=== PATIENT | female | born 1975 | race Caucasian/White ===

== ENCOUNTER 2017-02-05 12:27 | Emergency (ER) | payer BC, SELFPAY | END 2017-02-05 13:51 | disposition home or self-care (01) | PROVIDERS: Emergency Provider Nurse Practitioner; Family Provider Family Medicine; Visit Provider Nurse Practitioner | DX: J06.9 Acute upper respiratory infection, unspecified (principal); J45.909 Unspecified asthma, uncomplicated | CPT/HCPCS: 36415; 86318; 87804; 87880; 99201 ==

== ENCOUNTER 2017-02-15 14:06 | Emergency (ER) | payer BC, SELFPAY ==
[2017-02-15 14:52] VITALS: BP 146/89; PULSE 101; RESP 18; TEMP 36.7; O2SAT 99; BMI 22.4
--- NOTE | 2017-02-15 15:01 | CT_ITS ---
CT head/brain wo con HISTORY: Severe left-sided headache ITS.REASON: BRAIN CYST/LEFT SIDE PAIN ORDERING PHYSICIAN: Anna Cartagena MD PATIENT AGE: 41 years COMPARISON: None TECHNIQUE: Axial images obtained without contrast. Brain and bone windows reviewed. FINDINGS: No midline shift, mass effect, intracranial hemorrhage, hydrocephalus, or extra-axial fluid collection is evident. Small isodensity once again noted in the medial aspect of the right temporal lobe may be due to small choroidal fissure cyst or partial white matter region from the ventricle unchanged. The calvarium has an unremarkable appearance. No mastoid effusion. No sinus air-fluid levels.. IMPRESSION: No acute intracranial findings. No change with no acute finding.
--- NOTE | 2017-02-15 17:18 | HMH.EDGENADL ---
ED Disposition Clinical Impression: Muscle spasms of neck Disposition: Home, Self-Care Condition on Discharge: Good Instructions: DI for Muscle Spasm Additional Instructions: Watch for any unusual rashes; head CT was negative per radiology today; follow up with your family doctor next week for recheck. Recommend continue your home Naproxen, Rx Flexeril but can make you sleepy so no driving while taking this medication Prescriptions: Cyclobenzaprine HCl [Flexeril 10mg tablet] 10 mg PO TID PRN #6 tablet PRN Reason: Muscle Spasm Referrals: Catherine Watkins [Primary Care Provider] - - Critical Care Critical Care Time: No Attestation: On 02/15/17, the high probability of a clinically significant, sudden or life threatening deterioration of the following system(s) required my full and direct attention, intervention and personal management. The time I documented below is in addition to time spent performing reported procedures but includes the following listed in this critical care notation. Medical Decision Making - Medical Records Medical records reviewed: Yes: I reviewed the patient's medical records. Vital Signs: 02/15/17 14:52 Temperature 98.0 F Temperature Source Oral Pulse Rate [Right Brachial] 101 H Respiratory Rate 18 Blood Pressure [Right Arm] 146/89 Blood Pressure Mean [Right Arm] 108 Blood Pressure Source [Right Arm] Automatic Cuff Blood Pressure Position [Right Arm] Supine 02 Sat by Pulse Oximetry 99 Oxygen Delivery Method Room Air - CT Data CT Scan: Head Time Received: 17:[address] Reviewed: Yes: I have reviewed the patient's CT results, I have viewed the radiologist's interpretation Preliminary Findings: Normal/NAD Findings Narrative: small cyst, neg acute findings, hx of cyst - Sunil Inquiry Pt receiving controlled substance: No General Adult HPI - General Chief complaint: PAIN Stated complaint: left side head pain Time Seen by Provider: 02/15/17 17:18 Mode of Arrival: Ambulatory Limitations: No Limitations Description of Symptoms (Recalled from ER Triage Doc. by RN): LEFT SIDE SKULL PAIN - History of Present Illness HPI narrative: Patient with intermittent headache on left side for the past few weeks, seems worse today. Worse with movement. Has some ear pain. Seen at [facility] in [place], [place], today and strep negative and sent to their ER. She states she signed in then left AMA because of the wait. 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 No numbness or tingling. States hx of cyst in brain per prior imaging. No rashes. Radiation: neck Relieving factors: rest Exacerbating factors: movement Associated symptoms: negative: confusion, nausea/vomiting, rash - Related Data Previous Rx's Medication Instructions Recorded Cyclobenzaprine HCl [Flexeril 10mg 10 mg PO TID PRN #6 tab 02/15/17 tablet] Allergies Allergy/AdvReac Type Severity Reaction Status Date / Time aspirin [ASPIRIN] Allergy Unknown RINGING Verified 02/15/17 17:31 EARS [facility] History - *Social History Educational Level: Attended High School Smoking Status: Current some day smoker Tobacco Type: cigarettes Alcohol Intake: former Alcohol Intake Frequency:: holidays/special occasions only Substance Use Type: denies use - Psychiatric History Expresses thoughts of harming self/others: None Suicide Plan Description: No Plan ROS Obtained: Yes All systems reviewed & no additional complaints except as noted Physical Exam - General General appearance: alert, in no apparent distress - Head Head exam: atraumatic, normocephalic, normal inspection - Eye Eye exam: Present: normal appearance, PERRL, EOMI - ENT ENT exam: Present: normal exam, normal oropharynx, mucous membranes moist, TM's normal bilaterally, normal external ear exam - Neck Neck exam: Present: normal inspection, full ROM (subjective tenderness and spasm L trapezius no evidence of vesicles or rash no meningismus), tr
--- NOTE | 2017-02-15 17:21 | ED_ITS ---
ED Disposition Clinical Impression: Muscle spasms of neck Disposition: Home, Self-Care Condition on Discharge: Good Instructions: DI for Muscle Spasm Additional Instructions: Watch for any unusual rashes; head CT was negative per radiology today; follow up with your family doctor next week for recheck. Recommend continue your home Naproxen, Rx Flexeril but can make you sleepy so no driving while taking this medication Prescriptions: Cyclobenzaprine HCl [Flexeril 10mg tablet] 10 mg PO TID PRN #6 tablet PRN Reason: Muscle Spasm Referrals: Catherine Watkins [Primary Care Provider] - - Critical Care Critical Care Time: No Attestation: On 02/15/17, the high probability of a clinically significant, sudden or life threatening deterioration of the following system(s) required my full and direct attention, intervention and personal management. The time I documented below is in addition to time spent performing reported procedures but includes the following listed in this critical care notation. Medical Decision Making - Medical Records Medical records reviewed: Yes: I reviewed the patient's medical records. Vital Signs: 02/15/17 14:52 Temperature 98.0 F Temperature Source Oral Pulse Rate [Right Brachial] 101 H Respiratory Rate 18 Blood Pressure [Right Arm] 146/89 Blood Pressure Mean [Right Arm] 108 Blood Pressure Source [Right Arm] Automatic Cuff Blood Pressure Position [Right Arm] Supine 02 Sat by Pulse Oximetry 99 Oxygen Delivery Method Room Air - CT Data CT Scan: Head Time Received: 17:[address] Reviewed: Yes: I have reviewed the patient's CT results, I have viewed the radiologist's interpretation Preliminary Findings: Normal/NAD Findings Narrative: small cyst, neg acute findings, hx of cyst - Sunil Inquiry Pt receiving controlled substance: No General Adult HPI - General Chief complaint: PAIN Stated complaint: left side head pain Time Seen by Provider: 02/15/17 17:18 Mode of Arrival: Ambulatory Limitations: No Limitations Description of Symptoms (Recalled from ER Triage Doc. by RN): LEFT SIDE SKULL PAIN - History of Present Illness HPI narrative: Patient with intermittent headache on left side for the past few weeks, seems worse today. Worse with movement. Has some ear pain. Seen at [facility] in [place], [place], today and strep negative and sent to their ER. She states she signed in then left AMA because of the wait. 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 No numbness or tingling. States hx of cyst in brain per prior imaging. No rashes. Radiation: neck Relieving factors: rest Exacerbating factors: movement Associated symptoms: negative: confusion, nausea/vomiting, rash - Related Data Previous Rx's Medication Instructions Recorded Cyclobenzaprine HCl [Flexeril 10mg 10 mg PO TID PRN #6 tab 02/15/17 tablet] Allergies Allergy/AdvReac Type Severity Reaction Status Date / Time aspirin [ASPIRIN] Allergy Unknown RINGING Verified 02/15/17 17:31 EARS [facility] History - *Social History Educational Level: Attended High School Smoking Status: Current some day smoker Tobacco Type: cigarettes Alcohol Intake: former Alcohol Intake Frequency:: holidays/special occasions only Substance Use Type: denies use - Psychiatric History Expresses thoughts of harming self/othe
[2017-02-15 17:33] VITALS: BP 132/80; RESP 16
== END 2017-02-15 17:41 | disposition home or self-care (01) ==
PROVIDERS: Emergency Provider Emergency Medicine; Family Provider Family Medicine; PCP Psychiatry & Neurology Neurology
DX: M62.838 Other muscle spasm (principal); F17.210 Nicotine dependence, cigarettes, uncomplicated
CPT/HCPCS: 70450; 99283

== ENCOUNTER → 2017-03-06 12:29 | Outpatient (CLI) | payer BC, SELFPAY ==
--- NOTE | 2017-03-06 12:35 | XR_ITS ---
EXAM: XR cervical spine 5V HISTORY: ITS.REASON: CERVICALGIA, LT SIDED HEADACHE ORDERING PHYSICIAN: Kitty Garcia PATIENT AGE: 41 years COMPARISON: None FINDINGS: Normal alignment. No fracture or dislocation. No lytic or blastic change. No significant degenerative change. The disc spaces are preserved. There is slight reversal of the cervical lordosis. This may be due to patient positioning but may also be seen with mild muscle spasm. The foramina are widely patent. No evidence of cervical rib. IMPRESSION: Slight reversal of cervical lordosis otherwise negative cervical spine
== END ==
PROVIDERS: PCP Nurse Practitioner Family; Visit Provider Nurse Practitioner Family
DX: M54.2 Cervicalgia (principal); R51 Headache
CPT/HCPCS: 72050

== ENCOUNTER → 2017-04-25 11:27 | Outpatient (CLI) | payer BC, SELFPAY ==
--- NOTE | 2017-04-25 11:57 | XR_ITS ---
XR chest 2V HISTORY: Chest pain, shortness of air, hypertension ITS.REASON: SHORTNESS OF BREATH ORDERING PHYSICIAN: Kitty Garcia PATIENT AGE: 41 years COMPARISON: None available FINDINGS: The cardiomediastinal silhouette and pulmonary vascularity are within normal limits. The lungs are clear without infiltrates, suspicious nodules, or pleural effusions. A calcified granuloma is present in the right middle lobe. No acute bony abnormalities. IMPRESSION: No change with no acute finding
[2017-04-25 15:11] LABS: Basophils # 0.1 K/mm3 (0-0.2); Basophils % 0.5 % (0.1-2.0); Eosinophils # 0.3 K/mm3 (0.0-0.4); Eosinophils % 2.6 % (0.1-12.0); Hematocrit 42.8 % (37.0-47.0); Hemoglobin 14.3 g/dL (12.2-16.2); Lymphocytes # 2.9 K/mm3 (0.7-4.5); Lymphocytes % 26.5 K/mm3 (10-50); Mean Corpuscular HGB Conc 33.4 g/dL (31.8-35.4); Mean Corpuscular Hemoglobin 32.3 pg (27.0-31.2); Mean Corpuscular Volume 96.7 fl (81-99); Mean Platelet Volume 7.8 fl (7.4-10.4); Monocytes # 0.5 K/mm3 (0.1-1.0); Monocytes % 4.8 % (1.7-9.3); Neutrophils # 7.3 K/mm3 (1.8-7.8); Neutrophils % 65.6 % (37.0-80.0); Platelet Count 274 K/mm3 (142-424); Red Blood Count 4.42 M/mm3 (4.20-5.40); Red Cell Distribution Width 12.5 % (11.5-17.5); White Blood Count 11.1 K/mm3 (4.8-10.8)
[2017-04-25 15:25] LABS: Troponin I < 0.02 ng/ml (0.00-0.06)
[2017-04-25 15:35] LABS: Alanine Aminotransferase 21 U/L (12-78); Albumin Level 4.1 gm/dL (3.4-5.0); Albumin/Globulin Ratio 1.3 (1.1-1.8); Alkaline Phosphatase 60 U/L (46-116); Anion Gap 11.2 mEq/L (5-15); Aspartate Amino Transferase 9 U/L (15-37); Bilirubin,Total 0.2 mg/dL (0.2-1.0); Blood Urea Nitrogen 9 mg/dL (7-18); Calcium 8.8 mg/dL (8.5-10.1); Carbon Dioxide 29 mmol/L (21.0-32.0); Chloride 106 mmol/L (98-107); Creatinine,Serum 0.65 mg/dL (0.55-1.02); Estimated Glomerular Filt Rate 100 ml/min (>60); Ferritin 25 ng/mL (8-388); GFR (African American) 122 ML/MIN (>60); Globulin 3.1 gm/dl (1.3-3.2); Glucose 116 mg/dL (74-106); Potassium 4.2 mmoL/L (3.5-5.1); Sodium 142 mmol/L (136-145); Thyroid Stimulating Hormone 1.01 uIU/ml (0.358-3.740); Total Protein,Serum 7.2 gm/dL (6.4-8.2)
[2017-04-25 17:52] LABS: C-Reactive Protein < 0.2 mg/L (0.0-0.9)
[2017-04-30 06:24] LABS: Antinuclear Antibodies, IFA Negative (.)
== END ==
PROVIDERS: PCP Family Medicine; Visit Provider Nurse Practitioner Family
DX: R06.02 Shortness of breath (principal); R00.0 Tachycardia, unspecified; R03.0 Elevated blood-pressure reading, without diagnosis of hypertension; R53.83 Other fatigue
CPT/HCPCS: 36415; 71046; 80053; 82728; 84443; 84484; 85025; 86038; 86140; 93225; 93226

== ENCOUNTER 2018-08-29 04:31 | Observation (INO) ==
[2018-08-29 04:55] LABS: Microscopic, Urine URINE MICROSCOPIC (MICROSCOPIC)
[2018-08-29 04:57] LABS: Appearance,Urine CLEAR (Clear); Blood, Urine Negative (Negative); Glucose,Urine (UA) Negative (Negative); Ketones,Urine TRACE (Negative); Leukocyte Esterase,Urine Negative (Negative); PH,Urine 5.5 (5.0-8.5); Protein,Urine Negative (Negative); Specific Gravity, Urine 1.025 (1.005-1.030); Urobilinogen,Urine 0.2 EU/dl (0.2)
[2018-08-29 04:58] LABS: Basophils # 0.1 K/mm3 (0-0.2); Basophils % 0.5 % (0.1-2.0); Bilirubin,Urine Negative (Negative); Color,Urine Amber (Yellow); Eosinophils # 0.2 K/mm3 (0.0-0.4); Eosinophils % 2.1 % (0.1-12.0); Hematocrit 40.4 % (37.0-47.0); Hemoglobin 12.9 g/dL (12.2-16.2); Lymphocytes # 3.8 K/mm3 (0.7-4.5); Lymphocytes % 35.7 % (10-50); Mean Corpuscular Volume 92.6 fl (81-99); Mean Platelet Volume 7.4 fl (7.4-10.4); Monocytes # 0.5 K/mm3 (0.1-1.0); Monocytes % 4.9 % (1.7-9.3); Neutrophils # 6.1 K/mm3 (1.8-7.8); Neutrophils % 56.9 % (37.0-80.0); Platelet Count 271 K/mm3 (142-424); Red Blood Count 4.37 M/mm3 (4.20-5.40); Red Cell Distribution Width 12.7 % (11.5-17.5); White Blood Count 10.8 K/mm3 (4.8-10.8)
[2018-08-29 05:06] LABS: Alanine Aminotransferase 19 U/L (12-78); Albumin Level 3.7 gm/dL (3.4-5.0); Albumin/Globulin Ratio 1.1 (1.1-1.8); Alkaline Phosphatase 91 U/L (46-116); Amylase 116 U/L (25-115); Anion Gap 9.9 mEq/L (5-15); Aspartate Amino Transferase 11 U/L (15-37); Bilirubin,Total 0.4 mg/dL (0.2-1.0); Blood Urea Nitrogen 13 mg/dL (7-18); Calcium 8.7 mg/dL (8.5-10.1); Carbon Dioxide 28 mmol/L (21.0-32.0); Chloride 107 mmol/L (98-107); Globulin 3.4 gm/dl (1.3-3.2); Glucose 111 mg/dL (74-106); Sodium 141 mmol/L (136-145); Total Protein,Serum 7.1 gm/dL (6.4-8.2)
[2018-08-29 05:08] LABS: C-Reactive Protein < 0.2 mg/L (0.0-0.9)
[2018-08-29 05:10] LABS: Amorphous Sediment,Urine 1+ /lpf; Bacteria,Urine 2+ /lpf; Mucus,Urine 1+ /lpf
[2018-08-29 05:56] LABS: Erythrocyte Sedimentation Rate 19 mm/hr (0-20)
--- NOTE | 2018-08-29 06:31 | Emergency Department Note ---
ED Disposition Clinical Impression: Colitis Disposition: Admitted as Observation Condition on Discharge: Good Instructions: DI for Acute Abdomen Referrals: Savannah Crabtree [Primary Care Provider] - - Critical Care Critical Care Time: No Attestation: On 08/29/18, the high probability of a clinically significant, sudden or life threatening deterioration of the following system(s) required my full and direct attention, intervention and personal management. The time I documented below is in addition to time spent performing reported procedures but includes the following listed in this critical care notation. Medical Decision Making - Medical Records Medical records reviewed: Yes: I reviewed the patient's medical records. - Sunil Inquiry Pt receiving controlled substance: No Vital Signs: 08/29/18 04:40 08/29/18 06:31 Temperature 97.6 F Temperature Source Oral Pulse Rate [Right Radial] 76 80 Respiratory Rate 20 18 Blood Pressure [Right Arm] 121/99 H 129/90 Blood Pressure Mean [Right Arm] 106 103 02 Sat by Pulse Oximetry 100 100 Oxygen Delivery Method Room Air - Lab Data Lab results reviewed: Yes: I reviewed the patient's lab results. Lab Results 08/29/18 04:45: Urine Color Charissa, Urine Appearance Clear, Urine pH 5.5, Ur Specific [place] 1.025, Urine Protein Negative, Urine Glucose (UA) Negative, Urine Ketones Trace, Urine Blood Negative, Urine Nitrate Positive, Urine Bilirubin Negative, Urine Urobilinogen 0.2, Ur Leukocyte Esterase Negative, Urine WBC 3-5, Ur Squamous Epith Cells 3-5, Amorphous Sediment 1+, Urine Bacteria 2+, Urine Mucus 1+ 08/29/18 04:45: WBC 10.8, RBC 4.37, Hgb 12.9, Hct 40.4, MCV 92.6, MCH 29.6, MCHC 32.0, RDW 12.7, Plt Count 271, MPV 7.4, Neut % (Auto) 56.9, Lymph % (Auto) 35.7, [place] % (Auto) 4.9, Eos % (Auto) 2.1, Baso % (Auto) 0.5, Neut # (Auto) 6.1, Lymph # (Auto) 3.8, [place] # (Auto) 0.5, Eos # (Auto) 0.2, Baso # (Auto) 0.1, ESR 19 08/29/18 04:45: Sodium 141, Potassium 3.9, Chloride 107, Carbon Dioxide 28, Anion Gap 9.9, BUN 13, Creatinine 0.79, Estimated Creat Clear 103, Estimated GFR 80, Est GFR ( Amer) 97, Glucose 111 H, Calcium 8.7, Total Bilirubin 0.4, AST 11 L, ALT 19, Alkaline Phosphatase 91, C-Reactive Protein < 0.2, Total Protein 7.1, Albumin 3.7, Globulin 3.4 H, Albumin/Globulin Ratio 1.1, Amylase 116 H, Lipase 180 Result diagrams: 08/29/18 04:45 08/29/18 04:45 Orders (Tests/Meds): ED MEDICATIONS Generic Name Dose Route Start Last Admin Trade Name Freq PRN Reason Stop Dose Admin Sodium Chloride 1,000 mls @ 999 mls/hr 08/29/18 04:45 08/29/18 04:48 Sod Chlor 0.9% 1000ml Bag IV 08/29/18 05:45 999 mls/hr .Q1H1M ESTEFANY Administration Sodium Chloride 1,000 mls @ 999 mls/hr 08/29/18 07:00 08/29/18 07:00 Sod Chlor 0.9% 1000ml Bag IV 08/29/18 08:00 999 mls/hr .Q1H1M ESTEFANY Administration Discontinued Medications Generic Name Dose Route Start Last Admin Trade Name Freq PRN Reason Stop Dose Admin Hydromorphone HCl 1 mg 08/29/18 07:05 Dilaudid 2mg/Ml Syringe IV 08/29/18 07:06 ONCE ONE Ioversol 75 ml 08/29/18 05:56 08/29/18 05:57 Rad-Optiray 350 100ml Vial IV 08/29/18 05:57 75 ml ONCE ONE Administration Protocol Ketorolac Tromethamine 30 mg 08/29/18 04:44 08/29/18 04:48 Toradol 30mg/Ml Vial IV 08/29/18 04:45 30 mg ONCE ONE Administration Morphine Sulfate 4 mg 08/29/18 04:55 08/29/18 04:58 Morphine 4mg/Ml Syringe IV 08/29/18 04:56 4 mg ONCE ONE Administration Morphine Sulfate 4 mg 08/29/18 06:21 08/29/18 06:25 Morphine 4mg/Ml Syringe IV 08/29/18 06:22 4 mg ONCE ONE Administration Ondansetron HCl 4 mg 08/29/18 04:44 08/29/18 04:48 Zofran 4mg/2ml Vial IV 08/29/18 04:45 4 mg ONCE ONE Administration Ondansetron HCl 4 mg 08/29/18 06:25 08/29/18 06:25 Zofran 4mg/2ml Vial IV 08/29/18 06:26 4 mg ONCE ONE Administration Sodium Chloride 10 ml 08/29/18 05:56 08/29/18 05:57 Rad-Saline Flush 10ml Syringe IV 08/29/18 05:57 10 ml ONCE ONE Administration ORDERS Category Date Time Status CT abdomen pelvis w con Stat Cat Scan 08/29/18 04:45 Taken Urine Culture Stat Micro 08/29/18 04:45 Received - CT Data CT Scan: Abdomen, Pelvis Time Received: 07:[address] Reviewed: Yes: I have viewed the radiologist's interpretation Preliminary Findings: Abnormal (colitis) - Physician Consults Physician Consulted: kary Reason -: Admission Nausea/Vomiting/Diarrhea HPI - General Chief complaint: Abdominal Pain Stated complaint: Abdominal pain;contractions Time Seen by Provider: 08/29/18 05:30 Mode of Arrival: Ambulatory Source of Information: Patient, Spouse, Medical Record Limitations: No Limitations Description of Symptoms (Recalled from ER Triage Doc. by RN): PT STATES SHE WOKE UP AT 0130 WITH SEVERE LOWER MID ABDOMINAL PAIN AND NAUSEA. PT STATES IS FEELS LIKE LABOR CONTRACTIONS. PT STATES SHE HAS BEEN HAVING SOME MODERATE CONSTIPATION OVER THE PAST 4 DAYS. - History of Present Illness HPI Narrative: pt with nausea - pt with crampy abd pain with feling constipation with occ blood in stool MD complaint: nausea, abdominal pain Onset (ago): hour(s) Associated Abdominal Pain: Yes Location of pain: LLQ Radiation: LLQ Severity: moderate Associated symptoms: denies other symptoms - Related Data Home Medications Medication Instructions Recorded Confirmed Buspirone HCl [Buspar 10mg 10 mg PO DAILY 08/29/18 08/29/18 tablet] Estrogens, Conjugated [Premarin] 6.25 mg PO DAILY 08/29/18 08/29/18 Quetiapine Fumarate 100 mg PO DAILY 08/29/18 08/29/18 Allergies Allergy/AdvReac Type Severity Reaction Status Date / Time aspirin [ASPIRIN] Allergy Unknown RINGING Verified 08/29/18 04:43 EARS Androgenic Anabolic Steroid Allergy Verified 08/29/18 04:43 [facility] History - Hepatitis A Screen Drug use history?: No High risk sexual behaviors?: No History of sexually transmitted infection?: No Currently employed?: No Childcare worker?: No Do you have indoor plumbing?: Yes Do you have electricity?: Yes Attestation statement:: This patient has been screened for Hepatitis A risk factors. I have reviewed the patient's past medical history: Yes Medical History: Reports:: Hypertension (on no medications per report) Denies:: Cancer, Coronary Artery Disease, Diabetes Mellitus Type 1, Diabetes Mellitus Type 2, MRSA Laterality Cases: Left: Other Other Surgeries: Yes: Dilation and Curettage, Other (left knee cyst;) Amputation: No - Social History Smoking Status: Current every day smoker Tobacco Type: cigarettes # Packs/Day (cigarettes): 1 Alcohol Intake: never Alcohol Intake Frequency:: holidays/special occasions only Substance Use Type: denies use Occupational Status: unemployed ROS Obtained: Yes All systems reviewed & no additional complaints - Constitutional Constitutional: Denies fever(s) - Eyes Eyes: Denies change in vision - ENT Ears, Nose, Mouth, and Throat: Denies sore throat - Cardiovascular Cardiovascular: Denies chest pain - Respiratory Respiratory: No cough - Gastrointestinal Gastrointestingal: Reports: as per HPI, abdominal pain, constipation, nausea - Genitourinary Female Genitourinary: Denies hematuria - Musculoskeletal Musculoskeletal: Denies joint pain - Integumentary/Breasts Skin/Breast: Denies rash - Neurologic Neurologic: Denies seizure-like activity Physical Exam - General General appearance: alert - Head Head exam: normocephalic - Eye Eye exam: Present: PERRL, EOMI. Absent: scleral icterus - ENT ENT exam: Present: mucous membranes dry - Neck Neck exam: Present: trachea midline - Respiratory Respiratory exam: Absent: respiratory distress - Cardiovascular Cardiovascular exam: Present: regular rate - Abdominal Exam Abdominal exam: Present: soft, tenderness, diminished bowel sounds Abdominal tenderness: Present: LLQ, moderate - Extremities Exam Extremities exam: Present: full ROM - Neurological Exam Neurological exam: Present: alert, oriented X3, CN II-XII intact - Psychiatric Psychiatric exam: Present: normal affect - Skin Skin exam: Absent: rash
--- NOTE | 2018-08-29 07:46 | Pharmacy Consult Notes ---
[facility] Pharmacy VTE Monitoring - Patient Demographics Admission date: 08/29/18 Report Date: 08/29/18 Time: 07:46 Allergies/Adverse Reactions: Patient Allergies aspirin [ASPIRIN] Allergy (Unknown, Verified 08/29/18 04:43) RINGING EARS Androgenic Anabolic Steroid Allergy (Verified 08/29/18 04:43) Height: 1.75 m Weight: 70.307 kg Patient Problems: Current Active Problems (Updated 08/29/18 @ 07:14 by Ashwin Vaca MD) Colitis (Acute) - VTE Risk Labs: VTE Related Lab Results Hgb 12.9 g/dL (12.2-16.2) 08/29/18 04:45 Hct 40.4 % (37.0-47.0) 08/29/18 04:45 Plt Count 271 K/mm3 (142-424) 08/29/18 04:45 BUN 13 mg/dL (7-18) 08/29/18 04:45 Creatinine 0.79 mg/dL (0.55-1.02) 08/29/18 04:45 Estimated Creat Clear 103 mL/min (50-200) 08/29/18 04:45 - Prophylaxis VTE Prophylaxis Ordered?: Yes Types of VTE Prophylaxis: TEDS Knee High Location of Applied Device: Bilateral Lower Extremeties - VTE Diagnosis Confirmed Treatment or plan recommended: Continue Current Treatment
--- NOTE | 2018-08-29 08:24 | History & Physical Report ---
*Admission Date: 08/29/18 <Ledy Michelle 08/29/18 08:25> *Chief complaint: abdominal pain <Ledy Michelle 08/29/18 08:41> *History of present illness: Ms. Lal is a 42-year-old patient of [facility] in [place] who woke up at 1:30 AM with severe lower to mid abdominal pain and nausea that radiates around to her low back. She states she felt like she was having labor contractions. She states she has dealt with constipation her entire life but has had worsening constipation over the past 4 days. She presented to the emergency room for evaluation and treatment and an abdominal CT was ordered. It showed possible colitis with constipation. Her labs were relatively unremarkable other than a slightly elevated amylase. She was admitted for further evaluation and treatment. Of note she did see her PCP last week after spray painting and getting short of breath. She states she was placed on doxycycline and the shortness of breath has improved. <Ledy Michelle 08/29/18 08:41> [facility] History I have reviewed the patient's past medical history: Yes <Ledy Michelle 08/29/18 08:25> Medical History: Reports:: Anxiety Denies:: Cancer, Coronary Artery Disease, Diabetes Mellitus Type 1, Diabetes Mellitus Type 2, Hypertension, MRSA <Ledy Michelle 08/29/18 08:41> *Have you ever received a pneumonia vaccine?: No <Ledy Michelle 08/29/18 08:25> *Have you received a flu vaccine this season?: No <Ledy Michelle 08/29/18 08:25> Laterality Cases: Left: Other <Ledy Michelle 08/29/18 08:25> Other Surgeries: Yes: Appendectomy, Dilation and Curettage, Hysterectomy-Total, Other (left knee cyst;) <Ledy Michelle 08/29/18 08:41> Amputation: No <Ledy Michelle 08/29/18 08:25> - *Social History Smoking Status: Current every day smoker <Ledy Michelle 08/29/18 08:25> Tobacco Type: cigarettes <Ledy Michelle 08/29/18 08:25> # Packs/Day (cigarettes): 1 <Ledy Michelle - 08/29/18 08:25> Alcohol Intake: never [facility] 08[facility]> Alcohol Intake Frequency:: holidays/special occasions only <[facility]/29/18 08:25> Substance Use Type: denies use <[facility] [place] 08/29/18 08:25> *Occupational Status:: unemployed <EdkajalLedy - 08/29/18 08:25> *Travel in the last 8 weeks: None <[facility] [place] 08/29/18 08:25> Family Hx:: Cancer, Diabetes, Heart Attack, Hyperlipidemia, Hypertension, Stroke <[facility] [place] 08/29/18 08:41> Review of Systems - Constitutional Reports weakness, Denies body ache(s), Denies chills, Denies fever(s) <[facility] 08/29/18 08:41> - Eyes Denies blurry vision, Denies double vision <[facility] 08/29/18 08:41> - ENT Reports sore throat, Denies nasal congestion <[facility] 08/29/18 08:41> - *Cardiovascular Denies chest pain, Denies shortness of breath <[facility] 08/29/18 08:41> - *Respiratory Reports cough, Denies shortness of breath <[facility] 08/29/18 08:41> - *Gastrointestinal Reports abdominal pain (mid to lower abdominal pain), Reports constipation, Reports nausea, Reports vomiting, Denies loose stools <[facility] [place] 08:41> - *Genitourinary Denies difficulty urinating, Denies painful urination <[facility] 08/29/18 08:41> - *Musculoskeletal Denies joint pain <[facility] 08/29/18 08:41> - *Neurologic Denies headache(s), Denies seizure-like activity, Denies dizziness, Denies weakness <[facility] 08/29/18 08:41> Meds Home Medications Medication Instructions Recorded Confirmed Type Albuterol Sulfate [Albuterol HFA 2 puffs IH Q4HP PRN 08/29/18 08/29/18 History Inhaler] Buspirone HCl [Buspar 10mg 10 mg PO BID 08/29/18 08/29/18 History tablet] Estrogens, Conjugated [Premarin] 0.625 mg PO DAILY 08/29/18 08/29/18 History Quetiapine Fumarate 100 mg PO HS 08/29/18 08/29/18 History <[place],Andriy - 08/29/18 09:14> Allergies Allergy/AdvReac Type Severity Reaction Status Date / Time aspirin [ASPIRIN] Allergy Unknown RINGING Verified 08/29/18 04:43 EARS Androgenic Anabolic Steroid Allergy Verified 08/29/18 04:43 <[place],Andriy - 08/29/18 09:14> Exam Vital signs and Labs for Last 24 Hours: Temp Pulse Resp BP Pulse Ox 98.2 F 64 18 112/70 100 08/29/18 08:55 08/29/18 08:55 08/29/18 08:55 08/29/18 08:55 08/29/18 08:55 Laboratory Results - last 24 hr 08/29/18 04:45: Urine Color Charissa, Urine Appearance Clear, Urine pH 5.5, Ur Specific [place] 1.025, Urine Protein Negative, Urine Glucose (UA) Negative, Urine Ketones Trace, Urine Blood Negative, Urine Nitrate Positive, Urine Bilirubin Negative, Urine Urobilinogen 0.2, Ur Leukocyte Esterase Negative, Urine WBC 3-5, Ur Squamous Epith Cells 3-5, Amorphous Sediment 1+, Urine Bacteria 2+, Urine Mucus 1+ 08/29/18 04:45: WBC 10.8, RBC 4.37, Hgb 12.9, Hct 40.4, MCV 92.6, MCH 29.6, MCHC 32.0, RDW 12.7, Plt Count 271, MPV 7.4, Neut % (Auto) 56.9, Lymph % (Auto) 35.7, [place] % (Auto) 4.9, Eos % (Auto) 2.1, Baso % (Auto) 0.5, Neut # (Auto) 6.1, Lymph # (Auto) 3.8, [place] # (Auto) 0.5, Eos # (Auto) 0.2, Baso # (Auto) 0.1, ESR 19 08/29/18 04:45: Sodium 141, Potassium 3.9, Chloride 107, Carbon Dioxide 28, Anion Gap 9.9, BUN 13, Creatinine 0.79, Estimated Creat Clear 103, Estimated GFR 80, Est GFR ( Amer) 97, Glucose 111 H, Calcium 8.7, Total Bilirubin 0.4, AST 11 L, ALT 19, Alkaline Phosphatase 91, C-Reactive Protein < 0.2, Total Protein 7.1, Albumin 3.7, Globulin 3.4 H, Albumin/Globulin Ratio 1.1, Amylase 116 H, Lipase 180 <[place],Andriy - 08/29/18 09:14> Temp Pulse Resp BP Pulse Ox 97.6 F 80 18 129/90 100 08/29/18 04:40 08/29/18 06:31 08/29/18 06:31 08/29/18 06:31 08/29/18 06:31 Laboratory Results - last 24 hr 08/29/18 04:45: Urine Color Charissa, Urine Appearance Clear, Urine pH 5.5, Ur Specific [place] 1.025, Urine Protein Negative, Urine Glucose (UA) Negative, Urine Ketones Trace, Urine Blood Negative, Urine Nitrate Positive, Urine Bilirubin Negative, Urine Urobilinogen 0.2, Ur Leukocyte Esterase Negative, Urine WBC 3-5, Ur Squamous Epith Cells 3-5, Amorphous Sediment 1+, Urine Bacteria 2+, Urine Mucus 1+ 08/29/18 04:45: WBC 10.8, RBC 4.37, Hgb 12.9, Hct 40.4, MCV 92.6, MCH 29.6, MCHC 32.0, RDW 12.7, Plt Count 271, MPV 7.4, Neut % (Auto) 56.9, Lymph % (Auto) 35.7, [place] % (Auto) 4.9, Eos % (Auto) 2.1, Baso % (Auto) 0.5, Neut # (Auto) 6.1, Lymph # (Auto) 3.8, [place] # (Auto) 0.5, Eos # (Auto) 0.2, Baso # (Auto) 0.1, ESR 19 08/29/18 04:45: Sodium 141, Potassium 3.9, Chloride 107, Carbon Dioxide 28, Anion Gap 9.9, BUN 13, Creatinine 0.79, Estimated Creat Clear 103, Estimated GFR 80, Est GFR ( Amer) 97, Glucose 111 H, Calcium 8.7, Total Bilirubin 0.4, AST 11 L, ALT 19, Alkaline Phosphatase 91, C-Reactive Protein < 0.2, Total Protein 7.1, Albumin 3.7, Globulin 3.4 H, Albumin/Globulin Ratio 1.1, Amylase 116 H, Lipase 180 <Ledy Michelle 08/29/18 08:41> I & O for Last 24 hours: Intake & Output 08/26/18 08/27/18 08/28/18 08/29/18 23:59 23:59 23:59 23:59 Weight 155 lb 3 oz <Andriy Segal - 08/29/18 09:14> Intake & Output 08/26/18 08/27/18 08/28/18 08/29/18 11:59 11:59 11:59 11:59 Weight 155 lb <Ledy Michelle 08/29/18 08:25> - Constitutional no acute distress (but does appear to be in pain) <Miguel AngelLedy 08/29/18 08:41> - *Routine HEENT Exam Head: Present: normocephalic <Ledy Michelle 08/29/18 08:41> Eye: Present: EOMI, PERRL <Ledy Michelle 08/29/18 08:41> ENT: Present: mucous membranes dry <Ledy Michelle 08/29/18 08:41> - *Routine Neck Exam Present: supple. Absent: lymphadenopathy <Ledy Michelle 08/29/18 08:41> - *Routine Respiratory Exam Present: CTA bilaterally <Ledy Michelle 08/29/18 08:41> - *Routine Cardiovascular Exam Present: RRR <[facility] 08/29/18 08:41> - *Routine Abdominal Exam Present: soft, normoactive bowel sounds, tenderness (diffuse but worse in the bilateral lower quadrants) <Miguel AngelLedy 08/29/18 08:41> - *Routine Extremities Exam Absent: cyanosis, clubbing, edema <Ledy Michelle 08/29/18 08:41> - *Routine Skin Exam Present: warm. Absent: rash <Miguel AngelLedy 08/29/18 08:41> - *Routine Neurological Exam Present: alert, oriented X3 <Miguel AngelLedy - 08/29/18 08:41> H&P: Result - Impressions CT abd/pelvis Possible colitis with constipation <Ledy Michelle - 08/29/18 08:25> Assessment and Plan (1) Colitis Current visit: Yes Status: Acute Category: Medical Code(s): K52.9 - Noninfective gastroenteritis and colitis, unspecified (2) Low back pain Current visit: No Status: Acute Qualifiers: Chronicity: acute Back pain laterality: bilateral Sciatica presence: without sciatica Qualified Code(s): M54.5 - Low back pain Category: Medical Code(s): M54.5 - Low back pain (3) Urinary tract infection Current visit: Yes Status: Acute Category: Medical Code(s): N39.0 - Urinary tract infection, site not specified (4) Anxiety Current visit: Yes Status: Chronic Category: Medical Code(s): F41.9 - Anxiety disorder, unspecified (5) Constipation Current visit: Yes Status: Acute Category: Medical Code(s): K59.00 - Constipation, unspecified <Andriy Segal - 08/29/18 09:14> (1) Colitis Current visit: Yes Status: Acute Category: Medical Code(s): K52.9 - Noninfective gastroenteritis and colitis, unspecified (2) Low back pain Current visit: No Status: Acute Qualifiers: Chronicity: acute Back pain laterality: bilateral Sciatica presence: without sciatica Qualified Code(s): M54.5 - Low back pain Category: Medical Code(s): M54.5 - Low back pain (3) Urinary tract infection Current visit: Yes Status: Acute Category: Medical Code(s): N39.0 - Urinary tract infection, site not specified (4) Anxiety Current visit: Yes Status: Chronic Category: Medical Code(s): F41.9 - Anxiety disorder, unspecified <Miguel AngelLedy - 08/29/18 08:34> - Assessment and plan all Dx Assessment and Plan for all problems:: Saw patient, agree with above note. Will add Levaquin and start clear liquids. <PhilippAndriy - 08/29/18 09:14> Patient has been admitted and started on pain medication, IV fluids, and antiemetics. It does appear based on her labs that she has a urinary tract infection. She will likely need to be placed on antibiotics for this as well as her colitis. Will discuss antibiotics with Dr. Segal and await culture results. <Ledy Michelle - 08/29/18 08:41>
--- NOTE | 2018-08-30 08:23 | Progress Note ---
<Ledy Michelle - Last Filed: 08/30/18 08:22> Internal Medicine - PN: Subj *Date: 08/30/18 *Time: 08:22 Interval history: Patient states that she has had an awful morning. She states she feels the need to have a bowel movement but cannot go. She states she usually takes milk of magnesia at home every night, but is not opposed to a suppository this morning. She has a headache as well and did not rest well throughout the night. She has not been able to eat. Exam Vital signs and Labs for Last 24 Hours: Temp Pulse Resp BP Pulse Ox 99.3 F 93 H 18 104/61 L 97 08/30/18 08:00 08/30/18 08:00 08/30/18 08:00 08/30/18 08:00 08/30/18 08:00 I & O for Last 24 hours: Intake & Output 08/27/18 08/28/18 08/29/18 08/30/18 11:59 11:59 11:59 11:59 Intake Total 3675 / 3675 Balance 3675 / 3675 Weight 155 lb 3 oz 155 lb 2 oz Microbiology Reports for the Last 24 Hours: Microbiology 08/29/18 04:45 Urine,Clean Catch Urine Culture - Preliminary NO GROWTH AFTER 24 HOURS - Constitutional Comments: Does not appear to feel well - *Routine Respiratory Exam Present: CTA bilaterally - *Routine Cardiovascular Exam Present: RRR - *Routine Abdominal Exam Present: soft, normoactive bowel sounds, tenderness (diffuse) - *Routine Extremities Exam Absent: cyanosis, clubbing, edema - *Routine Skin Exam Present: warm. Absent: rash Assessment and Plan (1) Colitis Current visit: Yes Status: Acute Category: Medical Code(s): K52.9 - Noninfective gastroenteritis and colitis, unspecified (2) Low back pain Current visit: No Status: Acute Qualifiers: Chronicity: acute Back pain laterality: bilateral Sciatica presence: without sciatica Qualified Code(s): M54.5 - Low back pain Category: Medical Code(s): M54.5 - Low back pain (3) Urinary tract infection Current visit: Yes Status: Acute Category: Medical Code(s): N39.0 - Urinary tract infection, site not specified (4) Anxiety Current visit: Yes Status: Chronic Category: Medical Code(s): F41.9 - Anxiety disorder, unspecified (5) Constipation Current visit: Yes Status: Acute Category: Medical Code(s): K59.00 - Constipation, unspecified - Assessment and plan all Dx Assessment and Plan for all problems:: We will give a Dulcolax suppository this morning and start patient on milk of magnesia every night. We will continue antibiotics. <PhilippAndriy - Last Filed: 08/30/18 08:39> Internal Medicine - PN: Subj *Date: 08/30/18 *Time: 08:39 Exam Vital signs and Labs for Last 24 Hours: Temp Pulse Resp BP Pulse Ox 99.3 F 93 H 18 104/61 L 97 08/30/18 08:00 08/30/18 08:00 08/30/18 08:00 08/30/18 08:00 08/30/18 08:00 I & O for Last 24 hours: Intake & Output 08/27/18 08/28/18 08/29/18 08/30/18 23:59 23:59 23:59 23:59 Intake Total 2690 / 2690 985 / 985 Balance 2690 / 2690 985 / 985 Weight 155 lb 3 oz 155 lb 2 oz Microbiology Reports for the Last 24 Hours: Microbiology 08/29/18 04:45 Urine,Clean Catch Urine Culture - Preliminary NO GROWTH AFTER 24 HOURS Assessment and Plan (1) Colitis Current visit: Yes Status: Acute Category: Medical Code(s): K52.9 - Noninfective gastroenteritis and colitis, unspecified (2) Low back pain Current visit: No Status: Acute Qualifiers: Chronicity: acute Back pain laterality: bilateral Sciatica presence: without sciatica Qualified Code(s): M54.5 - Low back pain Category: Medical Code(s): M54.5 - Low back pain (3) Urinary tract infection Current visit: Yes Status: Acute Category: Medical Code(s): N39.0 - Urinary tract infection, site not specified (4) Anxiety Current visit: Yes Status: Chronic Category: Medical Code(s): F41.9 - Anxiety disorder, unspecified (5) Constipation Current visit: Yes Status: Acute Category: Medical Code(s): K59.00 - Constipation, unspecified - Assessment and plan all Dx Assessment and Plan for all problems:: Saw patient, agree with above note. May need enema if suppository is not effective.
--- NOTE | 2018-08-30 10:30 | Pharmacy Consult Notes ---
[facility] Pharmacy VTE Monitoring - Patient Demographics Admission date: 08/29/18 Report Date: 08/30/18 Time: 10:30 Allergies/Adverse Reactions: Patient Allergies aspirin [ASPIRIN] Allergy (Unknown, Verified 08/29/18 04:43) RINGING EARS Androgenic Anabolic Steroid Allergy (Verified 08/29/18 04:43) Height: 1.75 m Weight: 70.364 kg Patient Problems: Current Active Problems (Updated 08/29/18 @ 09:14 by Andriy Segal MD) Colitis (Acute) Anxiety (Chronic) Urinary tract infection (Acute) Constipation (Acute) - VTE Risk Labs: VTE Related Lab Results Hgb 12.9 g/dL (12.2-16.2) 08/29/18 04:45 Hct 40.4 % (37.0-47.0) 08/29/18 04:45 Plt Count 271 K/mm3 (142-424) 08/29/18 04:45 BUN 13 mg/dL (7-18) 08/29/18 04:45 Creatinine 0.79 mg/dL (0.55-1.02) 08/29/18 04:45 Estimated Creat Clear 103 mL/min (50-200) 08/29/18 04:45 Was VTE Risk Assessment Performed: Yes VTE Score: 2 VTE Risk Level: Low Risk - Prophylaxis VTE Prophylaxis Ordered?: Yes Types of VTE Prophylaxis: TEDS Knee High Location of Applied Device: Bilateral Lower Extremeties
--- NOTE | 2018-09-01 23:06 | Discharge Summary ---
General - General Admission date:: 08/29/18 Discharge date: 08/30/18 HPI HPI: Ms. Lal is a 42-year-old patient of [facility] in [place] who woke up at 1:30 AM with severe lower to mid abdominal pain and nausea that radiates around to her low back. She states she felt like she was having labor contractions. She states she has dealt with constipation her entire life but has had worsening constipation over the past 4 days. She presented to the emergency room for evaluation and treatment and an abdominal CT was ordered. It showed possible colitis with constipation. Her labs were relatively unremarkable other than a slightly elevated amylase. She was admitted for further evaluation and treatment. Of note she did see her PCP last week after spray painting and getting short of breath. She states she was placed on doxycycline and the shortness of breath has improved. Hospital Course Hospital Course: The patient's CT of the abdomen and pelvis showed possible colitis with constipation. The patient was admitted and started on pain medication, IV fluids, and antiemetics. It did appear based on her labs that she had a urinary tract infection, therefore Levaquin was added. She was also started on clear liquids. By the morning of 08/30/2018, the patient felt awful. She stated she felt the need to have a bowel movement but could not go. She also had a headache and was unable to rest well throughout the night. She had not felt like eating. A Dulcolax suppository was ordered for the patient and she was continued on antibiotics. Her urine culture did come back with no growth. The patient had a bowel movement after receiving the suppository and wanted to be discharged home to continue treatment. She was stable to be discharged home on continued Levaquin and she will follow-up with her primary MD in 3 or 4 days. Objective Vital signs: Temp Pulse Resp BP Pulse Ox 99.3 F 103 H 18 104/61 L 97 08/30/18 08:00 08/30/18 08:56 08/30/18 08:00 08/30/18 08:00 08/30/18 08:56 Narrative: - Constitutional no acute distress (but does appear to be in pain) - *Routine HEENT Exam Head: Present: normocephalic Eye: Present: EOMI, PERRL ENT: Present: mucous membranes dry - *Routine Neck Exam Present: supple. Absent: lymphadenopathy - *Routine Respiratory Exam Present: CTA bilaterally - *Routine Cardiovascular Exam Present: RRR - *Routine Abdominal Exam Present: soft, normoactive bowel sounds, tenderness (diffuse but worse in the bilateral lower quadrants) - *Routine Extremities Exam Absent: cyanosis, clubbing, edema - *Routine Skin Exam Present: warm. Absent: rash - *Routine Neurological Exam Present: alert, oriented X3 DS: Diagnosis - Discharge Diagnosis (1) Colitis Status: Acute (2) Low back pain Status: Acute (3) Urinary tract infection Status: Acute (4) Anxiety Status: Chronic (5) Constipation Status: Acute Discharge Plan - Patient Discharge Instructions ACTIVITY: Continue current activity DIET: continue same diet Patient Instructions: Urinary Tract Infection, DI for Abdominal Pain-Adult, DI for Constipation - Follow up Plan Unknown provider or service follow up:: Follow up with Primary MD in 3 or 4 days Disposition: Home, Self-Snf Medications: Home Medications Medication Instructions Recorded Confirmed Type Albuterol Sulfate [Albuterol HFA 2 puffs IH Q4HP PRN 08/29/18 08/29/18 History Inhaler] Buspirone HCl [Buspar 10mg 10 mg PO BID 08/29/18 08/29/18 History tablet] Estrogens, Conjugated [Premarin] 0.625 mg PO DAILY 08/29/18 08/29/18 History Ondansetron HCl [Ondansetron 4mg 4 mg PO Q4HP PRN 08/29/18 08/29/18 History Tablet] Quetiapine Fumarate 100 mg PO HS 08/29/18 08/29/18 History levoFLOXacin [Levaquin 500mg 500 mg PO DAILY #5 tab 08/30/18 Rx tab] Prescriptions/Medication Reconciliation: New levoFLOXacin [Levaquin 500mg tab] 500 mg PO DAILY #5 tab Continued Quetiapine Fumarate 100 mg PO HS Buspirone HCl [Buspar 10mg tablet] 10 mg PO BID Estrogens, Conjugated [Premarin] 0.625 mg PO DAILY Albuterol Sulfate [Albuterol HFA Inhaler] 2 puffs IH Q4HP PRN PRN Reason: Shortness Of Breath Or Wheezing Ondansetron HCl [Ondansetron 4mg Tablet] 4 mg PO Q4HP PRN PRN Reason: Nausea
== END 2018-08-30 12:00 | disposition home or self-care (01) ==
LOC: 2ND 04:31 → ER 04:31 → 2ND 08:08
PROVIDERS: ADMIT Family Medicine; ATTEND Family Medicine
CPT/HCPCS: 74177; 80053; 81001; 82150; 83690; 85025; 85651; 86140; 87086; 96365; 96367; 96375; 96376; 99284; G0378; J1956; J2405; Q9967

== ENCOUNTER 2022-08-22 13:31 | Emergency (ER) | payer BC, SELFPAY ==
[2022-08-22 13:45] VITALS: BP 125/84; PULSE 64; RESP 20; TEMP 36.8; O2SAT 96; BMI 24.7
--- NOTE | 2022-08-22 13:56 | EXP.UTC ---
Discharge Plan Disposition Patient Disposition: Home, Self-Care Condition: Good Prescriptions Prescriptions: No Action quetiapine 100 MG tablet 100 mg PO HS buspirone 10 MG tablet 10 mg PO BID conjugated estrogens 1.25 MG tablet 0.625 mg PO DAILY albuterol sulfate 18 GM HFA aerosol inhaler 2 puffs IH Q4HP PRN (Reason: Shortness Of Breath Or Wheezing) ondansetron HCl 4 MG tablet 4 mg PO Q4HP PRN (Reason: Nausea) levofloxacin 500 MG tablet 500 mg PO DAILY Qty: 5 0RF Referrals Follow up/Referrals: Savannah Crabtree [Primary Care Provider] - See instructions Clinical Impressions Clinical Impression: Right upper quadrant abdominal pain Discharge ED Provider: Lalo Ku [facility] General Chief complaint: Abdominal Pain Stated complaint: Pain upper RT rib Mode of Arrival: Ambulatory Source of Information: Patient Limitations: No Limitations Time Seen by Provider: 08/22/22 13:56 Description of Symptoms (Recalled from Triage Doc. by RN): PATIENT C/O RIGHT UPPER QUANDRANT PAIN WITH NAUSEA AND DIARRHEA THAT STARTED LAST SATURDAY AFTER EATING. SHE STATES THE PAIN IS CONSTANT BUT WORSENS WITH EATING AND DRINKING. HEENT Symptoms (Recalled from RN notes): No Resp Symptoms (Recalled from RN notes): No Skin Symptoms (Recalled from RN notes): No MS Symptoms (Recalled from RN notes): No Functional Status (Recalled from RN notes): WNL History of Present Illness Provider Complaint: Patient states that she started having pain last in her right upper abdominal area but after she eats or drinks states that pain gets worse and moves throughout her abdomen States that pain has been constant for the last couple of days but gets much worse after she eats or drinks something States that she still has her gall bladder and has hx of diverticulitis and thought it may have been that acting up Related Data Home Medications Medication Instructions Recorded Confirmed albuterol sulfate 90 mcg/actuation 2 puffs IH Q4HP PRN Shortness Of 08/29/18 08/29/18 aerosol inhaler Breath Or Wheezing buspirone 10 mg tablet 10 mg PO BID Depression 08/29/18 08/29/18 conjugated estrogens 1.25 mg tablet 0.625 mg PO DAILY HORMONE 08/29/18 08/29/18 REPLACEMENT ondansetron HCl 4 mg tablet 4 mg PO Q4HP PRN Nausea 08/29/18 08/29/18 quetiapine 100 mg tablet 100 mg PO HS MOOD 08/29/18 08/29/18 Previous Rx's Medication Instructions Recorded levofloxacin 500 mg tablet 500 mg PO DAILY #5 tabs 08/30/18 Allergies Allergy/AdvReac Type Severity Reaction Status Date / Time aspirin [ASPIRIN] Allergy Unknown RINGING Verified 08/29/18 04:43 EARS Androgenic Anabolic Steroid Allergy Verified 08/29/18 04:43 Worker's Comp Is this a Worker's Comp case?: No [facility] Disclaimer: The information contained in this section may have been updated after the patient was seen, as this information can be updated by other users. Social History Smoking Status: Never smoker alcohol intake: never substance use type: denies use current occupational status: unemployed Travel in the last 8 weeks: None household members: spouse and children housing: house ROS Obtained: Yes All systems reviewed & no additional complaints except as documented and Yes Systems reviewed as appropriate & no additional complaints except as documented Constitutional Constitutional: Reports system reviewed and no additional complaints, except as documented, Reports as per HPI, Denies fever(s) and Denies headache(s) ENT Ears, Nose, Mouth, and Throat: Reports system reviewed and no additional complaints, except as documented, Reports as per HPI and Denies headache(s) Cardiovascular Cardiovascular: Reports system reviewed and no additional complaints, except as documented and Reports as per HPI Respiratory Respiratory: Reports system reviewed and no additional complaints, except as documented an
--- NOTE | 2022-08-22 13:56 | PC.NURSE ---
PATIENT SENT TO ER PER Lydia MORRISSEY APRN FOR FURTHER EVALUATION. REPORT GIVEN TO Constantin BLAKE RN BY Lydia MORRISSEY APRN. PATIENT AMBULATED TO ER WITH [facility] STAFF ASSIST AT THIS TIME
[2022-08-22 14:01] VITALS: BP 144/97; PULSE 91; RESP 16; TEMP 36.8; O2SAT 97; BMI 24.7
[2022-08-22 14:26] VITALS: BMI 24.7
--- NOTE | 2022-08-22 14:30 | US_ITS ---
FINAL REPORT CLINICAL HISTORY: RUQ PAIN COMPARISON: None FINDINGS: Sonographic images of the right upper quadrant were obtained. The pancreas is partially obscured.The liver has an unremarkable appearance.The gallbladder appears normal without evidence of gallstones.There is no evidence of biliary ductal dilatation.The common duct measures 4mm. Limited images of the right kidney are unremarkable. IMPRESSION: Unremarkable right upper quadrant ultrasound. Reviewed, Interpreted and Dictated by Ab Camarena III, MD Transcribed by Cira Carr Authenticated and . [facility]
[2022-08-22 14:32] VITALS: BP 131/80; PULSE 72; O2SAT 97
[2022-08-22 14:44] LABS: Basophils # 0.1 K/mm3 (0-0.2); Basophils % 0.6 % (0.1-2.0); Eosinophils # 0.2 K/mm3 (0.0-0.4); Eosinophils % 2.5 % (0.1-12.0); Hematocrit 44.1 % (37.0-47.0); Hemoglobin 14.3 g/dL (12.2-16.2); Lymphocytes # 3.6 K/mm3 (0.7-4.5); Lymphocytes % 37.7 % (10-50); Mean Corpuscular HGB Conc 32.3 g/dL (31.8-35.4); Mean Corpuscular Hemoglobin 30.2 pg (27.0-31.2); Mean Corpuscular Volume 93.4 fl (81-99); Mean Platelet Volume 8.1 fl (7.4-10.4); Monocytes # 0.4 K/mm3 (0.1-1.0); Monocytes % 4.5 % (1.7-9.3); Neutrophils # 5.2 K/mm3 (1.8-7.8); Neutrophils % 54.7 % (37.0-80.0); Platelet Count 279 K/mm3 (142-424); Red Blood Count 4.72 M/mm3 (4.20-5.40); Red Cell Distribution Width 13.1 % (11.5-17.5); White Blood Count 9.5 K/mm3 (4.8-10.8)
[2022-08-22 14:47] LABS: Chloride 105 mmol/L (98-107); Potassium 4.6 mmoL/L (3.5-5.1); Sodium 141 mmol/L (136-145)
[2022-08-22 14:50] LABS: Alanine Aminotransferase 23 U/L (12-78); Albumin Level 4.5 g/dl (3.5-5.0); Albumin/Globulin Ratio 1.5 (1.1-1.8); Alkaline Phosphatase 93 U/L (38-126); Anion Gap 11.6 mEq/L (5-15); Aspartate Amino Transferase 36 U/L (14-36); Bilirubin,Total 0.3 mg/dl (0.2-1.3); Blood Urea Nitrogen 7 mg/dl (7-17); Calcium 9.4 mg/dl (8.4-10.2); Carbon Dioxide 29 mmol/L (22.0-30.0); Creatinine Clearance Estimated 121 mL/min (50-200); Estimated Glomerular Filt Rate 90 ml/min (>60); GFR (African American) 109 ML/MIN (>60); Glucose 90 mg/dl (74-100); Lipase 78 U/L (23-300); Total Protein,Serum 7.5 g/dl (6.3-8.2)
--- NOTE | 2022-08-22 15:27 | HMH.EDGENADL ---
Discharge Plan Disposition Patient Disposition: Home, Self-Care Condition: Good Prescriptions Prescriptions: No Action quetiapine 100 MG tablet 100 mg PO HS buspirone 10 MG tablet 10 mg PO BID conjugated estrogens 1.25 MG tablet 0.625 mg PO DAILY albuterol sulfate 18 GM HFA aerosol inhaler 2 puffs IH Q4HP PRN (Reason: Shortness Of Breath Or Wheezing) ondansetron HCl 4 MG tablet 4 mg PO Q4HP PRN (Reason: Nausea) levofloxacin 500 MG tablet 500 mg PO DAILY Qty: 5 0RF Referrals Follow up/Referrals: Savannah Crabtree [Primary Care Provider] - See instructions Clinical Impressions Clinical Impression: Right upper quadrant abdominal pain Discharge ED Provider: Lalo Ku General Adult HPI General Stated complaint: Pain upper RT rib Time Seen by Provider: 08/22/22 13:56 Mode of Arrival: Ambulatory Source of Information: Patient Limitations: No Limitations Description of Symptoms (Recalled from ER Triage Doc. by RN): PATIENT C/O RIGHT UPPER QUANDRANT PAIN WITH NAUSEA AND DIARRHEA THAT STARTED LAST SATURDAY AFTER EATING. SHE STATES THE PAIN IS CONSTANT BUT WORSENS WITH EATING AND DRINKING. History of Present Illness HPI narrative: 46yo F presents to the ER secondary to right upper quadrant pain with nausea and diarrhea. Symptoms began last after eating [place] food. Reports the pain is constant but worsens immediately with eating or drinking. No previous abdominal surgery. No fever. Related Data Home Medications Medication Instructions Recorded Confirmed albuterol sulfate 90 mcg/actuation 2 puffs IH Q4HP PRN Shortness Of 08/29/18 08/29/18 aerosol inhaler Breath Or Wheezing buspirone 10 mg tablet 10 mg PO BID Depression 08/29/18 08/29/18 conjugated estrogens 1.25 mg tablet 0.625 mg PO DAILY HORMONE 08/29/18 08/29/18 REPLACEMENT ondansetron HCl 4 mg tablet 4 mg PO Q4HP PRN Nausea 08/29/18 08/29/18 quetiapine 100 mg tablet 100 mg PO HS MOOD 08/29/18 08/29/18 Previous Rx's Medication Instructions Recorded levofloxacin 500 mg tablet 500 mg PO DAILY #5 tabs 08/30/18 Allergies Allergy/AdvReac Type Severity Reaction Status Date / Time aspirin [ASPIRIN] Allergy Unknown RINGING Verified 08/29/18 04:43 EARS Androgenic Anabolic Steroid Allergy Verified 08/29/18 04:43 [facility] Disclaimer: The information contained in this section may have been updated after the patient was seen, as this information can be updated by other users. Social History Smoking Status: Current every day smoker tobacco type: cigarettes packs per day: 1 alcohol intake: never substance use type: denies use current occupational status: unemployed Travel in the last 8 weeks: None household members: spouse and children housing: house ROS Obtained: Yes Systems reviewed as appropriate & no additional complaints except as documented Physical Exam General General appearance: alert and in no apparent distress Head Head exam: atraumatic Eye Eye exam: Present normal appearance Neck Neck exam: Present full ROM and trachea midline Chest Chest inspection: Present symmetric chest wall rise Respiratory Respiratory exam: Present normal lung sounds bilaterally; Absent respiratory distress Cardiovascular Cardiovascular exam: Present regular rate and normal rhythm Abdominal Exam Abdominal exam: Present soft, tenderness (Right upper quadrant) and normal bowel sounds; Absent distention, guarding, rebound or rigidity Extremities Exam Extremities exam: Absent edema Neurological Exam Neurological exam: Present alert, oriented X3 and CN II-XII intact Psychiatric Psychiatric exam: Present normal affect Skin Skin exam: Present warm, dry and intact Medical Decision Making Medical Records Medical records reviewed: Yes I reviewed the patient's medical records. Sunil Inquiry Pt receiving controlled substance: No Vital Signs:
[2022-08-22 15:55] VITALS: BP 121/80; PULSE 65; RESP 17; TEMP 36.7; O2SAT 98
[2022-08-22 16:43] LABS: Microscopic, Urine URINE MICROSCOPIC (MICROSCOPIC)
[2022-08-22 16:46] LABS: Appearance,Urine CLEAR (Clear); Bilirubin,Urine Negative (Negative); Blood, Urine TRACE-I (Negative); Color,Urine YELLOW (Yellow); Glucose,Urine (UA) Negative (Negative); Ketones,Urine Negative (Negative); Leukocyte Esterase,Urine Negative (Negative); Nitrate,Urine Negative (Negative); PH,Urine 6.5 (5.0-8.5); Protein,Urine Negative (Negative); Urobilinogen,Urine 0.2 EU/dl (0.2)
[2022-08-22 17:03] LABS: RBC,Urine Occasional #/hpf (0-3); Squamous Epithelial Cell,Urine Occasional #/hpf (0-5)
== END 2022-08-22 16:00 | disposition home or self-care (01) ==
LOC: UTC 13:35 → ER 14:00
PROVIDERS: Emergency Provider Family Medicine; PCP Nurse Practitioner Family
DX: R10.11 Right upper quadrant pain (principal); R11.0 Nausea; R19.7 Diarrhea, unspecified; F17.210 Nicotine dependence, cigarettes, uncomplicated
CPT/HCPCS: 76705; 80053; 81001; 83690; 85025; 96374; 99285; J2405

== ENCOUNTER 2023-01-30 15:29 | Emergency (ER) | payer BC, SELFPAY ==
[2023-01-30 15:50] VITALS: BP 140/89; PULSE 81; RESP 18; TEMP 36.7; O2SAT 100; BMI 27.9
--- NOTE | 2023-01-30 16:01 | EXP.UTC ---
Discharge Plan Disposition Patient Disposition: Home, Self-Care Condition: Good Prescriptions Prescriptions: New amoxicillin [amoxicillin] 875 mg tablet 875 mg PO Q12H Qty: 20 0RF benzonatate [benzonatate] 100 mg capsule 100 mg PO TIDP PRN (Reason: Cough) Qty: 30 0RF guaifenesin [Mucinex] 600 mg tablet extended release 12hr 600 - 1,200 mg PO BIDP PRN (Reason: Congestion) Qty: 30 0RF No Action promethazine 25 mg tablet 25 mg PO HS PRN (Reason: sleep) [id number] [Bromfed DM] 2-30-10 mg/5 mL syrup 7.5 ml PO Q4-6H PRN (Reason: cough) Qty: 200 0RF Referrals Follow up/Referrals: Savannah Crabtree [Primary Care Provider] - See instructions Activity Restrictions/Add. Instructions Additional Instructions/Restrictions: Drink plenty of fluids. Take tylenol or ibuprofen for pain or fever. Take the medications as directed. Follow up with your regular doctor. GO TO THE ER FOR ANY WORSENING SYMPTOMS Clinical Impressions Clinical Impression: Sinusitis Instructions Patient Instructions: Sinusitis, DI for Sinusitis Discharge ED Provider: Iban May [facility] HPI General Stated complaint: runny nose, h/a Time Seen by Provider: 01/30/23 16:01 History of Present Illness Provider Complaint: She states that for the past 1 weeks she has had sinus congestion. She states that her symptoms are worsening. Related Data Home Medications Medication Instructions Recorded Confirmed promethazine 25 mg tablet 25 mg PO HS PRN sleep 10/03/22 10/03/22 Previous Rx's Medication Instructions Recorded [id number]-JJ 7.5 ml PO Q4-6H PRN cough #200 mL 10/03/22 2 mg-30 mg-10 mg/5 mL oral syrup (Bromfed DM) amoxicillin 875 mg tablet 875 mg PO Q12H #20 tabs 01/30/23 benzonatate 100 mg capsule 100 mg PO TIDP PRN Cough #30 caps 01/30/23 guaifenesin 600 mg tablet, 600 - 1,200 mg PO BIDP PRN 01/30/23 extended release 12 hr (Mucinex) Congestion #30 tabs Allergies Allergy/AdvReac Type Severity Reaction Status Date / Time prednisone Allergy Numbness Verified 01/30/23 16:10 [facility] Disclaimer: The information contained in this section may have been updated after the patient was seen, as this information can be updated by other users. Medical History (Updated 01/30/23 @ 16:37 by Iban May APRN) Colitis Costochondritis, acute Low back pain Muscle spasms of neck Ovarian cyst Right upper quadrant abdominal pain Urinary tract infection Social History Smoking Status: Never smoker alcohol intake: never substance use type: denies use current occupational status: unemployed Travel in the last 8 weeks: None household members: spouse and children housing: house ROS Obtained: Yes All systems reviewed & no additional complaints except as documented Constitutional Constitutional: Reports poor appetite Eyes Eyes: Reports system reviewed and no additional complaints, except as documented ENT Ears, Nose, Mouth, and Throat: Reports as per HPI Cardiovascular Cardiovascular: Reports system reviewed and no additional complaints, except as documented and Denies chest pain Respiratory Respiratory: Denies shortness of breath, Reports chest congestion, Reports cough, Denies stridor and Denies wheezing Gastrointestinal Gastrointestingal: Reports system reviewed and no additional complaints, except as documented; Denies abdominal pain, diarrhea or vomiting Musculoskeletal Musculoskeletal: Reports system reviewed and no additional complaints, except as documented and Denies arthralgias Integumentary/Breasts Skin/Breast: Reports system reviewed and no additional complaints, except as documented and Denies rash Neurologic Neurologic: Denies paresthesias Allergic/Immunologic Allergic/Immunologic: Denies wheezing Physical Exam General General appearance: alert and in no apparent distress Head Head exa
[2023-01-30 16:27] LABS: UTC Influenza A Antigen Negative (Negative); UTC Influenza B Antigen Negative (Negative); UTC Strep Screen (Rapid) Negative (Negative)
[2023-01-30 16:53] VITALS: BP 140/89; PULSE 81; RESP 19; TEMP 36.7; O2SAT 100
== END 2023-01-30 16:53 | disposition home or self-care (01) ==
PROVIDERS: Emergency Provider Nurse Practitioner Family; PCP Nurse Practitioner Family
DX: J01.90 Acute sinusitis, unspecified (principal); R51.9 Headache, unspecified; R09.81 Nasal congestion; R05.9 Cough, unspecified; R09.89 Other specified symptoms and signs involving the circulatory and respiratory systems
CPT/HCPCS: 87804; 87880; 99204; 99212; G0463

== ENCOUNTER 2023-06-01 00:21 | Emergency (ER) | payer BC, SELFPAY ==
[2023-06-01 00:29] VITALS: BP 172/117; PULSE 97; RESP 20; TEMP 36.6; O2SAT 99; BMI 23.6
--- NOTE | 2023-06-01 00:29 | HMH.EDGENADL ---
Discharge Plan Disposition Patient Disposition: Left Against Medical Advice Chief Complaint: Headache Prescriptions Prescriptions: No Action albuterol sulfate 90 mcg/actuation HFA aerosol inhaler 2 puff INHALATION Q6HP PRN (Reason: soa) Patient Comments: INHALE 2 PUFFS BY MOUTH EVERY 6 HOURS NEEDED FOR WHEEZING bupropion HCl 150 mg tablet extended release 24 hr 150 mg PO DAILY Patient Comments: TAKE 1 TABLET BY MOUTH ONCE DAILY IN THE MORNING DO NOT CRUSH, CHEW, OR SPLIT Clinical Impressions Clinical Impression: Head ache Discharge ED Provider: Gary Davis General Adult HPI General Chief complaint: Headache Stated complaint: severe headache, nausea Time Seen by Provider: 06/01/23 00:29 History of Present Illness HPI narrative: 47-year-old female with history of depression presents with headache. She reports that she had a mild headache that suddenly and severely worsened. She characterizes it as the worst headache of her life. It is bitemporal in nature. She denies any history of migraines. She reports that she is having some photo and phonophobia. She denies any vision changes, numbness, weakness etc. Related Data Home Medications Medication Instructions Recorded Confirmed albuterol sulfate 90 mcg/actuation 2 puff inhalation Q6HP PRN soa 06/01/23 06/01/23 aerosol inhaler bupropion HCl 150 mg 24 hr tablet, 150 mg PO DAILY 06/01/23 06/01/23 extended release Allergies Allergy/AdvReac Type Severity Reaction Status Date / Time prednisone Allergy Numbness Verified 01/30/23 16:10 [facility] Disclaimer: The information contained in this section may have been updated after the patient was seen, as this information can be updated by other users. Medical History (Updated 06/01/23 @ 01:44 by Alona Laguerre RN) Right upper quadrant abdominal pain Urinary tract infection Colitis Ovarian cyst Costochondritis, acute Low back pain Muscle spasms of neck Social History Smoking Status: Current every day smoker tobacco type: cigarettes packs per day: 1 alcohol intake: never substance use type: denies use current occupational status: unemployed Travel in the last 8 weeks: None household members: spouse and children housing: house ROS Obtained: Yes All systems reviewed & no additional complaints except as documented Physical Exam General General appearance: alert and anxious (Intermittently crying) Head Head exam: atraumatic and normocephalic Eye Eye exam: Present normal appearance, PERRL and EOMI ENT ENT exam: Present normal oropharynx and normal external ear exam Neck Neck exam: Present normal inspection and full ROM Chest Chest inspection: Present normal inspection and symmetric chest wall rise; Absent tenderness Respiratory Respiratory exam: Present normal lung sounds bilaterally; Absent respiratory distress Cardiovascular Cardiovascular exam: Present regular rate and normal rhythm Abdominal Exam Abdominal exam: Present soft; Absent distention, tenderness or guarding Extremities Exam Extremities exam: Present normal inspection; Absent edema or joint swelling Back Exam Back exam: Present normal inspection; Absent tenderness Neurological Exam Neurological exam: Present alert and oriented X3; Absent motor sensory deficit Psychiatric Psychiatric exam: Present normal affect and normal mood Skin Skin exam: Present warm, dry and normal color Lymphatic Lymphatic Findings: no adenopathy Medical Decision Making Medical Records Medical records reviewed: Yes I reviewed the patient's medical records. Sunil Inquiry Pt receiving controlled substance: No Sunil was queried for this patient: No Vital Signs: 06/01/23 00:29 06/01/23 00:30 06/01/23 01:00 Temperature 97.8 F Temperature Source Oral Pulse Rate 101 H 77 Pulse Rate [Left Radial] 97 H Respiratory Rate 20 Blood Pressure 173/105 H 110/64 Blood Pressure [Right Arm] 172/117 H Blood Pressure Mean [Right Arm] 135 Blood Pressure Source [Right Arm] Automatic Cuff Blood Pressure Position [Right Arm] Sitting 02 Sat by Pulse Oximetry 99 98 97 Oxygen Delivery Method Room Air 06/01/23 01:30 Temperature Temperature Source Pulse Rate 83 Pulse Rate [Left Radial] Respiratory Rate Blood Pressure 108/89 L Blood Pressure [Right Arm] Blood Pressure Mean [Right Arm] Blood Pressure Source [Right Arm] Blood Pressure Position [Right Arm] 02 Sat by Pulse Oximetry 98 Oxygen Delivery Method Lab Data Lab results reviewed: Yes I reviewed the patient's lab results. Lab Results 06/01/23 00:42: WBC 11.9 H, RBC 3.89 L, Hgb 14.5, Hct 37.3, MCV 95.9, MCH 37.2 H, MCHC 38.8 H, RDW 13.6, Plt Count 247, MPV 8.1, Neut % (Auto) 54.5, Lymph % (Auto) 38.1, [place] % (Auto) 4.6, Eos % (Auto) 2.0, Baso % (Auto) 0.8, Neut # (Auto) 6.5, Lymph # (Auto) 4.5, [place] # (Auto) 0.6, Eos # (Auto) 0.2, Baso # (Auto) 0.1, Sodium 142, Potassium 4.2, Chloride 107, Carbon Dioxide 26, Anion Gap 13.2, BUN 11, Creatinine 0.80, Estimated Creat Clear 100, Estimated GFR 77, Est GFR ( Amer) 93, Glucose 112 H, Calcium 10.0, Total Bilirubin 0.3, AST 27, ALT 22, Alkaline Phosphatase 92, Total Protein 7.5, Albumin 4.8, Globulin 2.7, Albumin/Globulin Ratio 1.8 06/01/23 00:42 06/01/23 00:42 Orders (Tests/Meds): ED MEDICATIONS Generic Name Dose Route Start Last Admin Trade Name Freq PRN Reason Stop Dose Admin Sodium Chloride 1,000 mls @ 999 mls/hr 06/01/23 00:45 06/01/23 00:51 Sod Chlor 0.9% 1000ml Bag IV 06/01/23 01:45 999 mls/hr .Q1H1M ESTEFANY Administration Sodium Chloride 10 ml 06/01/23 00:41 06/01/23 00:52 Sodium Chloride 0.9% 10ml Flush Syringe IV 07/01/23 00:40 10 ml NEEDED PRN Administration Maintain IV Site Sodium Chloride 10 ml 06/01/23 01:32 06/01/23 01:33 Sodium Chloride 0.9% 10ml Syr (Rad Only) IV 07/01/23 01:31 10 ml NEEDED PRN Administration Maintain IV Site Discontinued Medications Generic Name Dose Route Start Last Admin Trade Name Freq PRN Reason Stop Dose Admin Acetaminophen 1,000 mg 06/01/23 00:41 06/01/23 00:51 Acetaminophen 500mg Tab PO 06/01/23 00:42 Not Given ONCE ONE Diphenhydramine HCl 25 mg 06/01/23 00:41 06/01/23 00:51 Diphenhydramine 50mg/Ml Vial IV 06/01/23 00:42 25 mg ONCE ONE Administration Iopamidol 100 ml 06/01/23 01:32 06/01/23 01:33 Iopamidol-370 (76%);100ml Bottle IV 06/01/23 01:33 100 ml ONCE ONE Administration Prochlorperazine Edisylate 10 mg 06/01/23 00:41 06/01/23 00:52 Prochlorperazine 10mg/2ml Vial IV 06/01/23 00:42 10 mg ONCE ONE Administration Sodium Chloride 50 ml 06/01/23 01:32 06/01/23 01:33 0.9 % Sodium Chloride 50 Ml Vial IV 06/01/23 01:33 50 ml ONCE ONE Administration ORDERS Category Date Time Status CT angio head Stat Cat Scan 06/01/23 00:[address] angio neck Stat Cat Scan 06/01/23 00:[address] head/brain wo con Stat Cat Scan 06/01/23 00:41 Taken CBC w/Auto Diff [Complete Blood Count Auto Diff] Stat Lab 06/01/23 00:42 Completed CMP [Comprehensive Metabolic Panel] Stat Lab 06/01/23 00:42 Completed Medical Decision Narrative: 47-year-old female without history of chronic headaches presents with initially mild then suddenly acute and severe frontal headache.. History was obtained interactive discussion with patient, family. On arrival, patient is [afebrile, hemodynamically stable, satting appropriately, alert, oriented x4, GCS 15], moving all extremities spontaneously. Full physical exam performed and significant for no focal neurologic deficits on exam. Differential includes but is not limited to tension headache, migraine headache, cluster headache, trigeminal neuralgia, subarachnoid hemorrhage, intracerebral aneurysm Patient took Tylenol prior to arrival, she was given IV Compazine, IV Benadryl, 1 L fluid bolus for symptomatic management and correction of underlying abnormalities. Workup initiated including CT head Noncon, CTA head neck, CBC CMP. No indication for test as patient has had a hysterectomy. On re-evaluation, patient [remains afebrile, HD stable.] Reports near complete symptomatic resolution. Laboratory workup independently interpreted by me and significant for minimal leukocytosis, normal renal function, normal electrolytes.. Imaging independently interpreted by me and significant for no evidence of subarachnoid hemorrhage or obvious aneurysm, no obvious intracranial lesion. See radiology read for full review of final results. Given patient history, exam and workup, patient's presentation most likely represents headache. Patient elected to leave A prior to CT results. We waited for the results and they returned normal. Procedures Risk/Benefits of Procedure(s) Were Explained: Yes Critical Care Critical Care Time Critical Care Time: No
[2023-06-01 00:30] VITALS: BP 173/105; PULSE 101; O2SAT 98
--- NOTE | 2023-06-01 00:41 | CT_ITS ---
PROCEDURE INFORMATION: Exam: CTA Neck With Contrast Exam date and time: 06/01/2023 1:24 AM Age: 47 years old Clinical indication: Pain; Headache; Additional info: Acute severe headache TECHNIQUE: Imaging protocol: Computed tomographic angiography of the neck with contrast. Exam focused on the cervical segments of the vasculature. 3D rendering (Not supervised by radiologist): MIP and/or 3D reconstructed images were created by the technologist. Radiation optimization: All CT scans at this facility use at least one of these dose optimization techniques: automated exposure control; mA and/or kV adjustment per patient size (includes targeted exams where dose is matched to clinical indication); or iterative reconstruction. Contrast material: ISOUVE 370; Contrast volume: 100 ml; Contrast route: INTRAVENOUS (IV); COMPARISON: CT ANGIO HEAD 06/01/2023 1:24 AM FINDINGS: Right common carotid artery: No stenosis. No dissection or occlusion. Right internal carotid artery: No stenosis of the extracranial segment. No dissection or occlusion. Right external carotid artery: No occlusion or stenosis of the origin. Left common carotid artery: No stenosis. No dissection or occlusion. Left internal carotid artery: No stenosis of the extracranial segment. No dissection or occlusion. Left external carotid artery: No occlusion or stenosis of the origin. Right vertebral artery: No stenosis. No dissection or occlusion. Left vertebral artery: No stenosis. No dissection or occlusion. Lymph nodes: Multiple calcified mediastinal lymph nodes. Soft tissues: Normal. No significant soft tissue swelling. Bones/joints: No acute fracture. Lungs: Small calcified granulomas in the visualized upper lungs. IMPRESSION: No stenosis or occlusion. No dissection. REFERENCES: NASCET CRITERIA. The degree of stenosis in the cervical segment of the internal carotid artery is based on NASCET criteria. Normal is no stenosis. Mild is less than 50% stenosis. Moderate is 50-69% stenosis. Severe is 70% to 99% stenosis. Total occlusion is no detectable patent lumen.
--- NOTE | 2023-06-01 00:41 | CT_ITS ---
PROCEDURE INFORMATION: Exam: CTA Head With Contrast, Arteriography Exam date and time: 06/01/2023 1:24 AM Age: 47 years old Clinical indication: Pain; Headache; Additional info: Acute severe headache TECHNIQUE: Imaging protocol: Computed tomographic angiography of the head with contrast. Exam focused on the arteries. 3D rendering (Not supervised by radiologist): MIP and/or 3D reconstructed images were created by the technologist. Radiation optimization: All CT scans at this facility use at least one of these dose optimization techniques: automated exposure control; mA and/or kV adjustment per patient size (includes targeted exams where dose is matched to clinical indication); or iterative reconstruction. Contrast material: ISOUVE 370; Contrast volume: 100 ml; Contrast route: INTRAVENOUS (IV); COMPARISON: CT HEAD/BRAIN WO CON 06/01/2023 1:17 AM FINDINGS: ANTERIOR CIRCULATION: Right internal carotid artery: Intracranial segment is patent with no significant stenosis. No aneurysm. Right middle cerebral artery: No occlusion or significant stenosis. No aneurysm. Right anterior cerebral artery: No occlusion or significant stenosis. No aneurysm. Left internal carotid artery: Intracranial segment is patent with no significant stenosis. No aneurysm. Left middle cerebral artery: No occlusion or significant stenosis. No aneurysm. Left anterior cerebral artery: No occlusion or significant stenosis. No aneurysm. POSTERIOR CIRCULATION: Right vertebral artery: No occlusion or significant stenosis. No aneurysm. Left vertebral artery: No occlusion or significant stenosis. No aneurysm. Basilar artery: No occlusion or significant stenosis. No aneurysm. Right posterior cerebral artery: No occlusion or significant stenosis. No aneurysm. Left posterior cerebral artery: No occlusion or significant stenosis. No aneurysm. Veins: The internal cerebral veins, vein of Erik, straight sinus, superior sagittal sinus and bilateral transverse and sigmoid sinuses are grossly patent. Brain: No definite mass, mass effect, or midline shift. Cerebral ventricles: No ventriculomegaly. Bones/joints: Unremarkable. No acute fracture. Soft tissues: Unremarkable. IMPRESSION: 1. No aneurysm. 2. No large vessel occlusion or stenosis.
--- NOTE | 2023-06-01 00:41 | CT_ITS ---
PROCEDURE INFORMATION: Exam: CT Head Without Contrast Exam date and time: 06/01/2023 1:17 AM Age: 47 years old Clinical indication: Pain; Headache; Additional info: Acute severe headache TECHNIQUE: Imaging protocol: Computed tomography of the head without contrast. Radiation optimization: All CT scans at this facility use at least one of these dose optimization techniques: automated exposure control; mA and/or kV adjustment per patient size (includes targeted exams where dose is matched to clinical indication); or iterative reconstruction. COMPARISON: HEADWO CT head/brain wo con 02/15/2017 3:09 PM FINDINGS: Brain: No acute intracranial hemorrhage, acute large territory infarct, or obvious mass lesion. No significant white matter disease. No midline shift or mass effect. Cerebral ventricles: No ventriculomegaly. Paranasal sinuses: Visualized sinuses are unremarkable. No fluid levels. Mastoid air cells: Visualized mastoid air cells are well aerated. Bones/joints: Unremarkable. No acute fracture. Soft tissues: Unremarkable. IMPRESSION: No acute intracranial abnormality.
[2023-06-01 00:51] LABS: Basophils # 0.1 K/mm3 (0-0.2); Basophils % 0.8 % (0.1-2.0); Eosinophils # 0.2 K/mm3 (0.0-0.4); Hematocrit 37.3 % (37.0-47.0); Hemoglobin 14.5 g/dL (12.2-16.2); Lymphocytes # 4.5 K/mm3 (0.7-4.5); Lymphocytes % 38.1 % (10-50); Mean Corpuscular HGB Conc 38.8 g/dL (31.8-35.4); Mean Corpuscular Hemoglobin 37.2 pg (27.0-31.2); Mean Corpuscular Volume 95.9 fl (81-99); Mean Platelet Volume 8.1 fl (7.4-10.4); Monocytes # 0.6 K/mm3 (0.1-1.0); Monocytes % 4.6 % (1.7-9.3); Neutrophils # 6.5 K/mm3 (1.8-7.8); Neutrophils % 54.5 % (37.0-80.0); Platelet Count 247 K/mm3 (142-424); Red Blood Count 3.89 M/mm3 (4.20-5.40); Red Cell Distribution Width 13.6 % (11.5-17.5); White Blood Count 11.9 K/mm3 (4.8-10.8)
[2023-06-01] MEDS: 0.9 % SODIUM CHLORIDE 1000ML 1,000 ML 999 ML IV (00:51)
[2023-06-01] MEDS: diphenhydrAMINE 50MG/ML VIAL 25 MG IV (00:51)
[2023-06-01] MEDS: SODIUM CHLORIDE 0.9% 10ML FLUSH SYRINGE 10 ML IV (00:52)
[2023-06-01] MEDS: PROCHLORPERAZINE 10MG/2ML VIAL 10 MG IV (00:52)
[2023-06-01 01:00] VITALS: BP 110/64; PULSE 77; O2SAT 97
[2023-06-01 01:01] LABS: Alanine Aminotransferase 22 U/L (12-78); Albumin Level 4.8 g/dl (3.5-5.0); Albumin/Globulin Ratio 1.8 (1.1-1.8); Alkaline Phosphatase 92 U/L (38-126); Anion Gap 13.2 mEq/L (5-15); Aspartate Amino Transferase 27 U/L (14-36); Bilirubin,Total 0.3 mg/dl (0.2-1.3); Blood Urea Nitrogen 11 mg/dl (7-17); Carbon Dioxide 26 mmol/L (22.0-30.0); Chloride 107 mmol/L (98-107); Creatinine Clearance Estimated 100 mL/min (50-200); Estimated Glomerular Filt Rate 77 ml/min (>60); GFR (African American) 93 ML/MIN (>60); Globulin 2.7 g/dL (1.3-3.2); Glucose 112 mg/dl (74-100); Potassium 4.2 mmoL/L (3.5-5.1); Sodium 142 mmol/L (136-145); Total Protein,Serum 7.5 g/dl (6.3-8.2)
--- NOTE | 2023-06-01 01:15 | PC.NURSE ---
rounded on pt at this time. pt voices no needs. at bedside.
--- NOTE | 2023-06-01 01:23 | PC.NURSE ---
pt to radiology at this time
[2023-06-01 01:30] VITALS: BP 108/89; PULSE 83; O2SAT 98
[2023-06-01] MEDS: 0.9 % SODIUM CHLORIDE 50 ML VIAL IV (01:33)
[2023-06-01] MEDS: IOPAMIDOL-370 (76%);100ML BOTTLE 100 ML IV (01:33)
[2023-06-01] MEDS: SODIUM CHLORIDE 0.9% 10ML SYR (RAD ONLY) 10 ML IV (01:33)
--- NOTE | 2023-06-01 01:39 | PC.NURSE ---
pt advises she is ready to go home and go to sleep. Pt reports she does not want to wait on CT scan results, and wants to sign out against medical advice. Pt educated on risks of leaving hospital AMA, including . Pt verbalizes understanding.
[2023-06-01 01:41] VITALS: BP 108/89; PULSE 83; RESP 18; TEMP 36.6; O2SAT 98
== END 2023-06-01 01:43 | disposition left against medical advice (07) ==
LOC: ER 00:25
PROVIDERS: Emergency Provider Emergency Medicine
DX: R51.9 Headache, unspecified (principal); F17.210 Nicotine dependence, cigarettes, uncomplicated
CPT/HCPCS: 70450; 70496; 70498; 80053; 85025; 96361; 96374; 96375; 99285; Q9967

== ENCOUNTER 2023-08-06 12:54 | Emergency (ER) | payer BC, SELFPAY ==
[2023-08-06 13:00] VITALS: BP 141/58; PULSE 89; RESP 18; TEMP 36.8; O2SAT 98; BMI 25.1
[2023-08-06 13:13] LABS: UTC Strep Screen (Rapid) Negative (Negative)
--- NOTE | 2023-08-06 13:25 | EXP.UTC ---
Discharge Plan Disposition Patient Disposition: Home, Self-Care Condition: Good Prescriptions Prescriptions: New benzonatate 100 mg capsule 100 mg PO TIDP PRN (Reason: Cough) Qty: 30 0RF albuterol sulfate [Ventolin HFA] 90 mcg/actuation HFA aerosol inhaler 2 puff inhalation Q6H PRN (Reason: shortness of breath or wheezing) Qty: 6.7 0RF amoxicillin-pot clavulanate 875-125 mg Tablet 1 tab PO Q12H Qty: 20 0RF No Action clonidine HCl 0.1 mg tablet 0.1 mg PO BID albuterol sulfate 90 mcg/actuation HFA aerosol inhaler 2 puff INHALATION Q6HP PRN (Reason: soa) Patient Comments: INHALE 2 PUFFS BY MOUTH EVERY 6 HOURS NEEDED FOR WHEEZING bupropion HCl 150 mg tablet extended release 24 hr 150 mg PO DAILY Patient Comments: TAKE 1 TABLET BY MOUTH ONCE DAILY IN THE MORNING DO NOT CRUSH, CHEW, OR SPLIT Referrals Follow up/Referrals: Savannah Crabtree [Primary Care Provider] - See instructions Activity Restrictions/Add. Instructions Additional Instructions/Restrictions: Drink plenty of fluids. Take tylenol or ibuprofen for pain or fever. Take the medications as directed. Follow up with your regular doctor. GO TO THE ER FOR ANY WORSENING SYMPTOMS Clinical Impressions Clinical Impression: Sinusitis, Acute bronchitis Instructions Patient Instructions: How to Use a Metered-Dose Inhaler, Sinusitis, DI for Sinusitis Discharge ED Provider: Iabn May [facility] General Stated complaint: cough, congestion Mode of Arrival: Ambulatory Source of Information: Patient Limitations: No Limitations Time Seen by Provider: 08/06/23 13:25 Description of Symptoms (Recalled from Triage Doc. by RN): Pt's symptoms are cough, sore throat, and chest congestion. HEENT Symptoms (Recalled from RN notes): Yes Resp Symptoms (Recalled from RN notes): No Skin Symptoms (Recalled from RN notes): No MS Symptoms (Recalled from RN notes): No Functional Status (Recalled from RN notes): n/a Related Data Home Medications Medication Instructions Recorded Confirmed albuterol sulfate 90 mcg/actuation 2 puff inhalation Q6HP PRN soa 06/01/23 08/06/23 aerosol inhaler bupropion HCl 150 mg 24 hr tablet, 150 mg PO DAILY 06/01/23 08/06/23 extended release clonidine HCl 0.1 mg tablet 0.1 mg PO BID 08/06/23 08/06/23 Previous Rx's Medication Instructions Recorded albuterol sulfate 90 mcg/actuation 2 puff inhalation Q6H PRN 08/06/23 aerosol inhaler (Ventolin HFA) shortness of breath or wheezing #6.7 grams amoxicillin 875 mg-potassium 1 tab PO Q12H #20 tabs 08/06/23 clavulanate 125 mg tablet benzonatate 100 mg capsule 100 mg PO TIDP PRN Cough #30 caps 08/06/23 Allergies Allergy/AdvReac Type Severity Reaction Status Date / Time prednisone Allergy Numbness Verified 08/06/23 13:10 Worker's Comp Is this a Worker's Comp case?: No [facility] Disclaimer: The information contained in this section may have been updated after the patient was seen, as this information can be updated by other users. Medical History (Updated 08/06/23 @ 13:50 by Iban May APRN) Right upper quadrant abdominal pain Urinary tract infection Colitis Ovarian cyst Costochondritis, acute Low back pain Muscle spasms of neck Social History Smoking Status: Current every day smoker tobacco type: cigarettes packs per day: 1 alcohol intake: never substance use type: denies use current occupational status: unemployed Travel in the last 8 weeks: None household members: spouse and children housing: house ROS Obtained: Yes All systems reviewed & no additional complaints except as documented Constitutional Constitutional: Reports poor appetite Eyes Eyes: Reports system reviewed and no additional complaints, except as documented ENT Ears, Nose, Mouth, and Throat: Reports as per HPI Cardiovascular Cardiovascular: Reports system reviewed and no additional complaints, except as documented and Denies chest pain Respiratory Respiratory: Denies shortness of breath, Reports chest congestion, Reports cough, Denies stridor and Denies wheezing Gastrointestinal Gastrointestingal: Reports system reviewed and no additional complaints, except as documented; Denies abdominal pain, diarrhea or vomiting Musculoskeletal Musculoskeletal: Reports system reviewed and no additional complaints, except as documented and Denies arthralgias Integumentary/Breasts Skin/Breast: Reports system reviewed and no additional complaints, except as documented and Denies rash Neurologic Neurologic: Denies paresthesias Allergic/Immunologic Allergic/Immunologic: Denies wheezing Physical Exam General General appearance: alert and in no apparent distress Eye Eye exam: Present normal appearance, PERRL and EOMI ENT ENT exam: Present mucous membranes moist and normal external ear exam Expanded ENT Exam External ear exam: Present normal external inspection TM/Canal exam: Bilateral TM: erythema and bulging Nose exam: Absent sinus tenderness Nasal speculum exam: Bilateral: normal Mouth exam: Present normal external inspection; Absent drooling Teeth exam: Present normal inspection Throat exam: Present tonsillar erythema and tonsillomegaly Neck Neck exam: Present normal inspection, full ROM and trachea midline; Absent tenderness, lymphadenopathy or thyromegaly Chest Chest inspection: Present normal inspection and symmetric chest wall rise; Absent tenderness or rash Respiratory Respiratory exam: Present normal lung sounds bilaterally; Absent respiratory distress, wheezes, stridor or accessory muscle use Cardiovascular Cardiovascular exam: Present regular rate, normal rhythm and normal heart sounds Abdominal Exam Abdominal exam: Present soft; Absent distention, tenderness, guarding, rebound or rigidity Extremities Exam Extremities exam: Present normal inspection, full ROM and normal capillary refill; Absent tenderness or calf tenderness Back Exam Back exam: Present normal inspection and full ROM; Absent tenderness Neurological Exam Neurological exam: Present alert and oriented X3 Psychiatric Psychiatric exam: Present normal affect and normal mood Skin Skin exam: Present warm, dry, intact and normal color Lymphatic Lymphatic Findings: no adenopathy Medical Decision Making Medical Records Medical records reviewed: No I reviewed the patient's medical records. Sunil Inquiry Pt receiving controlled substance: No Vital Signs: 08/06/23 13:00 Temperature 98.2 F Temperature Source Oral Pulse Rate [Right Radial] 89 Respiratory Rate 18 Blood Pressure [Right Arm] 141/58 H Blood Pressure Mean [Right Arm] 85 Blood Pressure Source [Right Arm] Automatic Cuff Blood Pressure Position [Right Arm] Sitting 02 Sat by Pulse Oximetry 98 Oxygen Delivery Method Room Air Lab Data Lab Results 08/06/23 13:10: Strep Scn Rapid Clinic Negative Orders (Tests/Meds): ORDERS Category Date Time Status Strep Screen Confirmation Stat Micro 08/06/23 13:10 Received
[2023-08-06 13:58] VITALS: BP 141/58; PULSE 89; RESP 18; TEMP 36.8; O2SAT 98
--- NOTE | 2023-08-08 08:05 | PC.NURSE ---
PATIENT'S STREP SCREEN CONFIRMATION REVIEWED AT THIS TIME, NEGATIVE RESULT NOTED. NO CHANGE NEEDED.
== END 2023-08-06 13:58 | disposition home or self-care (01) ==
PROVIDERS: Emergency Provider Nurse Practitioner Family; PCP Nurse Practitioner Family
DX: J20.9 Acute bronchitis, unspecified (principal); J01.90 Acute sinusitis, unspecified; R07.0 Pain in throat; R09.81 Nasal congestion; R05.9 Cough, unspecified
CPT/HCPCS: 87880; 99212; 99214; G0463

== ENCOUNTER 2024-10-04 15:35 | Outpatient (CLI) | payer BC, SELFPAY ==
--- OUTSIDE RECORDS SUMMARY | 2024-10-05 12:55 | XMS_ITS | Encounter Summary ---
Author Organization Healthcare Address [address] [place] [address] Care Team Providers Care Packer Dried Beef Name Role Phone Savannah Crabtree APRN Primary Care Provider [phone] Encounter Details Date Type Department Care Team (Late st Contact Info) Description 06/23/2023 Outside Procedure External Location [address] [place] [id number] Provider, Jose [place] Social History Tobacco Use Types Packs/Day Years Used Date Smoking Tobacco: Every Day Cigarettes 0.5 21.6 Started: 2003 Smokeless Tobacco: Never Alcohol Use Standard Drinks/Week Comments Never 0 (1 standard drink = 0.6 oz pur e alcohol) Humiliation, Afraid, Rape, and Kick questionnair e Answer Date Recorded Within the last year, have y ou been afraid of your partner or ex-partner? No 03/19/2023 Within the last year, have y ou been humiliated or emotionally abused in other ways by your partner or ex-partner? No Within the last year, have y ou been kicked, hit, slapped, or otherwise physically hurt by your partner or ex-partner? No 03/19/2023 Within the last year, have y ou been raped or forced to have any kind of sexual activity by your partner or ex-partner? No 03/19/2023 PHQ-2 Answer Date Recorded Patient Health Questionnaire-2 Score 2 06/18/2023 Hunger Vital Sign Answer Date Recorded Within the past 12 months, y ou worried that your food would run out before you got the money to buy more. Never true 03/19/19 24 Within the past 12 months, t he food you bought just didn't last and you didn't have money to get more. Never true 03/19/2023 PRAPARE - Transportation Answer Date Re corded In the past 12 months, has l ack of transportation kept you from medical appointments or from getting medications? No 07/2023 In the past 12 months, has l ack of transportation kept you from meetings, work, or from getting things needed for daily living? No 03/19/2023 Housing Stability Vital Sign Answer Hernando e Recorded In the last 12 months, was t here a time when you were not able to pay the mortgage or rent on time? No 03/19/2023 Number of Places Lived in the Last Year Not on f ile 03/19/2023 In the last 12 months, was t here a time when you did not have a steady place to sleep or slept in a half-way (including now)? No 03/19/2023 Utilities Answer Date Recorded In the past 12 months has th e electric, gas, oil, or water company threatened to shut off services in your home? No 03/19/2023 Comments No Sex and Gender Information Value Date Recorded Sex Assigned at Not on file Legal Sex Female 8:55 PM EDT Gender Identity Not on file Sexual Orientation Not on file documented as of this encounter Plan of Treatment Not on file documented as of this encounter Procedures Procedure Name Priority Date/Time Associated Diagnosis Comments CT ANGIO HEAD 06/23/2023 10:57 PM EDT documented in this encounter Results * CT Angio Head (06/23/2023 10:57 PM EDT) Anatomical Region Laterality Modality [place] Computed Tomogr aphy 06/23/2023 10:5 7 PM EDT Narrative 06/24/2023 12:03 AM EDT [id number] [place] [address] Name: ETHEL LAL Exam Date: 06/23/2023 : 1975 Age 47 years Gender: F Physician: CHASE AMANDA Facility: [facility] Facility HSV: Outpatient Exam: CTA HEAD W/CONT FINAL REPORT TECHNIQUE: Multiple axial CT angiography images were performed from the foramen magnum to the vertex before and during IV contrast administration.Thin section axial CT images through the neck with IV contrast supplemented with 3-D multiplanar reconstruction.This study was performed with techniques to keep radiation doses as low as reasonably achievable (ALARA). CLINICAL HISTORY: Headache FINDINGS: CTA HEAD: The major intracranial arterial system is patent without hemodynamically significant stenosis or major vessel occlusion.No aneurysm is identified.CTA neck:Aortic arch:Arch shows no significant narrowing.Great vessel origins are widely patent.Right carotid: There isno significant atherosclerosis of the right carotid bulb. 0% stenosis according to the NASCET criteria.Left carotid: There is no significant atherosclerosis of the left carotid bulb.0% stenosis according to the NASCET criteria.Vertebrals: The vertebral arteries are patent.No significant stenosis is present. IMPRESSION: No evidence of vascular injury, aneurysm, hemodynamically significant stenosis or major vessel occlusion of the intracranial arterial system.0% stenosis of the carotid bulbs by NASCET criteria.Patent vertebral arteries. Authenticated and EASTERN Dictated By: Tanner Holbrook Transcribed By: Transcribed On: 06/23/2023 11:52 PM Electronically signed by: Tanner Holbrook 06/23/2023 Thank you for referring ETHEL LAL to [facility]. Legally authenticated by WILFREDO Arellano 2023-06-23 23:52:01 Procedure Note Provider, Generic [place] - 06/24/2023 [place] [address] Name: ETHEL LAL Exam Date: 06/23/2023 : 1975 Age 47 years Gender: F Physician: CHASE AMANDA Facility: [facility] Facility HSV: Outpatient Exam: CTA HEAD W/CONT FINAL REPORT TECHNIQUE: Multiple axial CT angiography images were performed from the foramen magnum to the vertex before and during IV contrast administration.Thin section axial CT images through the neck with IV contrast supplemented with 3-D multiplanar reconstruction.This study was performed with techniques to keep radiation doses as low as reasonably achievable (ALARA). CLINICAL HISTORY: Headache FINDINGS: CTA HEAD: The major intracranial arterial system is patent without hemodynamically significant stenosis or major vessel occlusion.No aneurysm is identified.CTA neck:Aortic arch:Arch shows no significant narrowing.Great vessel origins are widely patent.Right carotid: There isno significant atherosclerosis of the right carotid bulb. 0% stenosis according to the NASCET criteria.Left carotid: There is no significant atherosclerosis of the left carotid bulb.0% stenosis according to the NASCET criteria.Vertebrals: The vertebral arteries are patent.No significant stenosis is present. IMPRESSION: No evidence of vascular injury, aneurysm, hemodynamically significant stenosis or major vessel occlusion of the intracranial arterial system.0% stenosis of the carotid bulbs by NASCET criteria.Patent vertebral arteries. Authenticated and EASTERN Dictated By: Tanner Holbrook Transcribed By: Transcribed On: 06/23/2023 11:52 PM Electronically signed by: Tanner Holbrook 06/23/2023 Thank you for referring ETHEL LAL to [facility]. Legally authenticated by WILFREDO Arellano 2023-06-23 23:52:01 Generic [place] Provider IMG CT PROCEDURES Fi nal Result documented in this encounter Visit Diagnoses Not on filedocumented in this encounter Additional Health Concerns Assessment Noted Time A Body Mass Index follow-up plan has been documented for the patient 06/21/2023 11:27 AM EDT documented as of this encounter Care Teams Packer Dried Beef Relationship Specialty Start Date End Date Savannah Crabtree APRN [address] [place] [address] PCP - General 06/24/20 documented as of this encounter
--- OUTSIDE RECORDS SUMMARY | 2024-10-05 12:55 | XMS_ITS | Encounter Summary ---
Author Organization Healthcare Address [id number] Care Team Providers Care Manager Information Name Role Phone Savannah Crabtree MEDICAID BILLING SPECIALIST Primary Care Provider [phone] Reason for Visit * Reason Comments Med Refill Encounter Details Date Type Department Care Team (Late st Contact Info) Description 04/07/2023 Refill [facility] [address] [place] [address] Savannah Crabtree APRN [address] [place] [address] Nausea Social History Tobacco Use Types Packs/Day Years Used Date Smoking Tobacco: Every Day Cigarettes 0.5 20 Smokeless Tobacco: Never Alcohol Use Standard Drinks/Week [...] Date Recorded Patient Health Questionnaire-2 Score 2 03/19/2023 Hunger Vital Sign Answer Date Recorded Within [...] place to sleep or slept in a long term (including now)? No 03/19/2023 Utilities Answer Date [...] on file documented as of this encounter Visit Diagnoses Diagnosis Nausea Nausea alone documented in this encounter Additional Health Concerns Assessment Noted Time A Body Mass Index follow-up plan has been documented for the patient 03/19/2023 12:05 PM EST documented as of this encounter Care Teams Manager Information Relationship Specialty Start Date End Date Savannah Crabtree APRN [facility] [address] PCP - General 06/24/20 documented as of this encounter
--- OUTSIDE RECORDS SUMMARY | 2024-10-05 12:55 | XMS_ITS | Encounter Summary ---
Author Organization Healthcare Address [address] [place] [address] Care Team Providers Care Roof Slater Name Role Phone Savannah Crabtree APRN Primary Care Provider [phone] Encounter Details Date Type Department Care Team (Late st Contact Info) Description 07/07/2021 Outside Procedure External Location [address] [place] [phone] Provider, Jose [place] Social History Tobacco Use Types Packs/Day Years Used Date Smoking Tobacco: Every Day Smokeless Tobacco: Never PHQ-2 Answer Date Recorded Patient Health Questionnaire-2 Score 0 03/20/2021 Comments Unknown Sex and Gender Information Value Date Recorded Sex Assigned at Not on file Legal Sex Female 8:55 PM EDT Gender Identity Not on file Sexual Orientation Not on file documented as of this encounter Plan of Treatment Not on file documented as of this encounter Procedures Procedure Name Priority Date/Time Associated Diagnosis Comments MR WRIST RIGHT WO IV CONTRAST 07/07/2021 4:33 PM EDT documented in this encounter Results * MR Wrist Right wo IV Contrast (07/07/2021 4:33 PM EDT) Anatomical Region Laterality Modality Wrist Right Magnetic Resonan ce 07/07/2021 4:33 PM EDT Narrative 07/10/2021 9:20 AM EDT [facility] [address] [place] [address] Name: ETHEL LAL Exam Date: 07/07/2021 : 1975 Age 45 Gender: F Physician: Billie Bella Facility: [facility] Facility HSV: Outpatient Exam: MRI UPPER EXT JOINT W/O RT FINAL REPORT CLINICAL HISTORY: right wrist pain since april 2021 pain after having IV in wrist no surgical history FINDINGS: Multiplanar MR imaging of the right wrist was performed without contrast. There is no marrow edema, stress fracture, or osteonecrosis. There is no evidence of intrinsic ligament injury. The triangular fibrocartilage is intact. There is tendinosis and tenosynovitis of the extensor pollicis brevis and abductor pollicis longus tendons with surrounding soft tissue edema. No soft tissue mass or cyst is identified. No focal abnormality is identified of the median nerve. IMPRESSION: De Quervain's tenosynovitis. Reviewed, Interpreted and Dictated by Thuy Vásquez DO Transcribed by Saran Vizcarra Authenticated by Thuy Vásquez DO on 07/10/2021 09:08:29 AMEASTERN Dictated By: THUY VÁSQUEZ Transcribed By: Transcribed On: 07/10/2021 9:08 AM Electronically signed by: THUY VÁSQUEZ 07/10/2021 Thank you for referring ETHEL LAL to [facility]. Legally authenticated by CARLI Gamboa 2021-07-10 09:08:29 Procedure Note Provider, Generic [place] - 07/10/2021 [place] [address] Name: ETHEL LAL Exam Date: 07/07/2021 : 1975 Age 45 Gender: F Physician: Billie Bella Facility: [facility] Facility HSV: Outpatient Exam: MRI UPPER EXT JOINT W/O RT FINAL REPORT CLINICAL HISTORY: right wrist pain since april 2021 pain after having IV in wrist no surgical history FINDINGS: Multiplanar MR imaging of the right wrist was performed without contrast. There is no marrow edema, stress fracture, or osteonecrosis. There is no evidence of intrinsic ligament injury. The triangular fibrocartilage is intact. There is tendinosis and tenosynovitis of the extensor pollicis brevis and abductor pollicis longus tendons with surrounding soft tissue edema. No soft tissue mass or cyst is identified. No focal abnormality is identified of the median nerve. IMPRESSION: De Quervain's tenosynovitis. Reviewed, Interpreted and Dictated by Thuy Vásquez DO Transcribed by Saran Vizcarra Authenticated by Thuy Vásquez DO on 07/10/2021 09:08:29 AMEASTERN Dictated By: THUY VÁSQUEZ Transcribed By: Transcribed On: 07/10/2021 9:08 AM Electronically signed by: THUY VÁSQUEZ 07/10/2021 Thank you for referring ETHEL LAL to [facility]. Legally authenticated by CARLI Gamboa 2021-07-10 09:08:29 Generic [place] Provider IMG MRI PROCEDURES F inal Result documented in this encounter Visit Diagnoses Not on filedocumented in this encounter Care Teams Roof Slater Relationship Specialty Start Date End Date Savannah Crabtree, CYBER SECURITY MANAGER [address] [place] [phone] PCP - General 06/24/20 documented as of this encounter
--- OUTSIDE RECORDS SUMMARY | 2024-10-05 12:55 | XMS_ITS | Encounter Summary ---
Author Organization Healthcare Address [address] [place] [address] Care Team Providers Care Uptwister Tender Name Role Phone Savannah Crabtree APRN Primary Care Provider [phone] Encounter Details Date Type Department Care Team (Late st Contact Info) Description 12/08/2022 Outside Procedure External Location [address] [place] [id number] Provider, Jose Cornell Social History Tobacco Use Types Packs/Day Years Used Date Smoking Tobacco: Every Day Smokeless Tobacco: Never PHQ-2 Answer Date Recorded PHQ-2 Score 2 10/31/2021 Comments Unknown Sex and Gender Information Value Date Recorded Sex Assigned at Not on file Legal Sex Female 8:55 PM EDT Gender Identity Not on file Sexual Orientation Not on file documented as of this encounter Plan of Treatment Not on file documented as of this encounter Procedures Procedure Name Priority Date/Time Associated Diagnosis Comments CT ABDOMEN PELVIS W IV CONTRAST 12/08/2022 2:17 PM EDT documented in this encounter Results * CT Abdomen Pelvis w IV Contrast (12/08/2022 2:17 PM EDT) Anatomical Region Laterality Modality Abdomen, Pelvis Computed Tomogra phy 12/08/2022 2:17 PM EDT Narrative 12/08/2022 5:12 PM EDT [facility] [address] [place] [address] Name: ETHEL LAL Exam Date: 12/08/2022 : 1975 Age 47 Gender: F Physician: CAPRICE DURAN Facility: [facility] Facility HSV: Outpatient Exam: CT ABD PEL W (IV CONT ONLY) FINAL REPORT TECHNIQUE: Axial CT images were performed from the lung bases through the pubic symphysis after the administration of IV contrast. Oral contrast was administered. This study was performed with techniques to keep radiation doses as low as reasonably achievable (ALARA). Individualized dose reduction techniques using automated exposure control or adjustment of mA and/or kV according to the patient's size were employed. CLINICAL HISTORY: abdominal pain; HX of diverticulitis FINDINGS: ABDOMEN: Lung bases are clear. The heart size is normal. There is a 1 cm cyst in the hepatic dome. The gallbladder is present. The spleen is normal size. There is no pancreatic mass or inflammatory change. Adrenal glands are unremarkable. There is no hydronephrosis or discrete ureteral stone. There is mucosal thickening and inflammatory change in the splenic flexure consistent with colitis/diverticulitis. No abscess is identified. There is no free air or free fluid. PELVIS: The appendix is not visualized. The urinary bladder is decompressed. No significant fluid collection is seen in the pelvis. Osseous structures are intact. IMPRESSION: Colitis/diverticulitis of the splenic flexure. Reviewed, Interpreted and Dictated by Jody Ott DO Transcribed by Anca Banegas Authenticated and EASTERN Dictated By: Jody Ott DO Transcribed By: Transcribed On: 12/08/2022 4:59 PM Electronically signed by: Jody Ott DO 12/08/2022 Thank you for referring ETHEL LAL to [facility]. Legally authenticated by POPE JODY Gamboa 2022-12-08 16:59:31 Procedure Note Provider, Generic Cornell - 12/08/2022 [id number] [place] [address] Name: ETHEL LAL Exam Date: 12/08/2022 : 1975 Age 47 Gender: F Physician: CAPRICE DURAN Facility: [facility] Facility HSV: Outpatient Exam: CT ABD PEL W (IV CONT ONLY) FINAL REPORT TECHNIQUE: Axial CT images were performed from the lung bases through the pubic symphysis after the administration of IV contrast. Oral contrast was administered. This study was performed with techniques to keep radiation doses as low as reasonably achievable (ALARA). Individualized dose reduction techniques using automated exposure control or adjustment of mA and/or kV according to the patient's size were employed. CLINICAL HISTORY: abdominal pain; HX of diverticulitis FINDINGS: ABDOMEN: Lung bases are clear. The heart size is normal. There is a 1 cm cyst in the hepatic dome. The gallbladder is present. The spleen is normal size. There is no pancreatic mass or inflammatory change. Adrenal glands are unremarkable. There is no hydronephrosis or discrete ureteral stone. There is mucosal thickening and inflammatory change in the splenic flexure consistent with colitis/diverticulitis. No abscess is identified. There is no free air or free fluid. PELVIS: The appendix is not visualized. The urinary bladder is decompressed. No significant fluid collection is seen in the pelvis. Osseous structures are intact. IMPRESSION: Colitis/diverticulitis of the splenic flexure. Reviewed, Interpreted and Dictated by Jody Ott DO Transcribed by Anca Banegas Authenticated and EASTERN Dictated By: Jody Ott DO Transcribed By: Transcribed On: 12/08/2022 4:59 PM Electronically signed by: Jody Ott DO 12/08/2022 Thank you for referring ETHEL LAL to [facility]. Legally authenticated by POPE JODY Gamboa 2022-12-08 16:59:31 us Generic Cornell Provider IMG CT PROCEDURES Fi nal Result documented in this encounter Visit Diagnoses Not on filedocumented in this encounter Care Teams Uptwister Tender Relationship Specialty Start Date End Date Savannah Crabtree, MELCHOR [address] [place] [address] PCP - General 06/24/20 documented as of this encounter
--- OUTSIDE RECORDS SUMMARY | 2024-10-05 12:55 | XMS_ITS | Encounter Summary ---
Author Organization Healthcare Address [address] [place] [address] Care Team Providers Care Biofuels Technology Manager Name Role Phone Savannah Crabtree APRN Primary Care Provider [phone] Encounter Details Date Type Department Care Team (Late st Contact Info) Description 06/23/2023 Outside Procedure External Location [address] [place] [phone] Provider, Jose Rathdrum Social History Tobacco Use Types Packs/Day Years [...] place to sleep or slept in a longterm (including now)? No 03/19/2023 Utilities Answer Date [...] Priority Date/Time Associated Diagnosis Comments CT ANGIO CHEST 06/23/2023 10:57 PM EDT documented in this encounter Results * CT Angio Chest (06/23/2023 10:57 PM EDT) Anatomical Region Laterality Modality Chest Computed Tomogra phy 06/23/2023 10:5 7 PM EDT Narrative 06/24/2023 12:14 [place] [address] Name: ETHEL LAL Exam Date: 06/23/2023 : 1975 Age 47 years Gender: F Physician: CHASE AMANDA Facility: [facility] Facility HSV: Outpatient Exam: CTA CHEST PE FINAL REPORT TECHNIQUE: Multiple axial CT images were obtained through the chest following IV contrast using a CTA/PE protocol.3D/MIP reconstruction images were also performed. This study was performed with techniques to keep radiation doses as low as reasonably achievable (ALARA). Individualized dose reduction techniques using automated exposure control or adjustment of mA and/or kV according to the patient's size were employed. CLINICAL HISTORY: Chest Tightness FINDINGS: The exam is limited by patient respiratory motion and suboptimal bolus timing.PAs and aorta: No large central pulmonary embolus within limits of the exam.Thoracic aorta is unremarkable.No significant coronary artery disease.Heart/mediastinum: No evidence for right heart strain.No pericardial effusion.The heart is normal in size.Lungs: Mild atelectasis.Otherwise the lungs are clear.Lymph nodes: No pathologically enlarged thoracic lymph nodes.Pleura: No pneumothorax or pleural effusion.Chest Wall: No chest wall contusion.Bones: No acute fracture.Upper abdomen: No acute findings in the upper abdomen. IMPRESSION: No large central pulmonary embolus within limits of the exam. No acute findings in the chest. Reviewed, Interpreted and Dictated by Tanner Holbrook MD Transcribed by Becca Evans Authenticated and EASTERN Dictated By: Tanner Holbrook Transcribed By: Transcribed On: 06/24/2023 12:03 AM Electronically signed by: Tanner Holbrook 06/24/2023 Thank you for referring ETHEL LAL to [facility]. Legally authenticated by WILFREDO Arellano 2023-06-24 00:03:07 Procedure Note Provider, [facility] - 06/24/2023 [place] [address] Name: ETHEL LAL Exam Date: 06/23/2023 : 1975 Age 47 years Gender: F Physician: CHASE AMANDA Facility: [facility] Facility HSV: Outpatient Exam: CTA CHEST PE FINAL REPORT TECHNIQUE: Multiple axial CT images were obtained through the chest following IV contrast using a CTA/PE protocol.3D/MIP reconstruction images were also performed. This study was performed with techniques to keep radiation doses as low as reasonably achievable (ALARA). Individualized dose reduction techniques using automated exposure control or adjustment of mA and/or kV according to the patient's size were employed. CLINICAL HISTORY: Chest Tightness FINDINGS: The exam is limited by patient respiratory motion and suboptimal bolus timing.PAs and aorta: No large central pulmonary embolus within limits of the exam.Thoracic aorta is unremarkable.No significant coronary artery disease.Heart/mediastinum: No evidence for right heart strain.No pericardial effusion.The heart is normal in size.Lungs: Mild atelectasis.Otherwise the lungs are clear.Lymph nodes: No pathologically enlarged thoracic lymph nodes.Pleura: No pneumothorax or pleural effusion.Chest Wall: No chest wall contusion.Bones: No acute fracture.Upper abdomen: No acute findings in the upper abdomen. IMPRESSION: No large central pulmonary embolus within limits of the exam. No acute findings in the chest. Reviewed, Interpreted and Dictated by Tanner Holbrook MD Transcribed by Becca Evans Authenticated and EASTERN Dictated By: Tanner Holbrook Transcribed By: Transcribed On: 06/24/2023 12:03 AM Electronically signed by: Tanner Holbrook 06/24/2023 Thank you for referring ETHEL LAL to [facility]. Legally authenticated by WILFREDO Arellano 2023-06-24 00:03:07 Generic Rathdrum Provider IMG CT PROCEDURES Fi nal Result documented in this encounter Visit Diagnoses Not on filedocumented in this encounter Additional Health Concerns Assessment Noted Time A Body Mass Index follow-up plan has been documented for the patient 06/21/2023 11:27 AM EDT documented as of this encounter Care Teams Biofuels Technology Manager Relationship Specialty Start Date End Date Savannah Crabtree APRN [address] [id number] PCP - General 06/24/20 documented as of this encounter
--- OUTSIDE RECORDS SUMMARY | 2024-10-05 12:55 | XMS_ITS | Clinical Summary ---
Author Organization Healthcare Address [address] [id number] Care Team Providers Care Dentist Private Practice Name Role Phone Savannah Crabtree APRN Primary Care Provider Allergies Active Allergy Reactions Criticality Noted Date Comments Aspirin Other - please document in the comment field Low 08/29/2018 Ringing in ears Prednisolone Acetate Other - please document in the comment field Low 05/05/2018 Numbness and tingling in extremities Headache Medications propranolol (Inderal) 20 MG tabletIndications :Generalized anxiety disorder Take 1 tablet (20 mg) by mouth 2 (two) times a day if needed ([id number]) . 60 tablet 2 04/30/2023 Active albuterol 108 (90 Base) MCG/ACT inhalerIndication s:Mild intermittent asthma without complication Inhale 2 puffs every 6 (six) hours if needed for wheezing. 6.7 g 8 09/02/2023 Active cloNIDine (Catapres) 0.1 MG tabletIndications :Essential (primary) hypertension TAKE 1 TABLET(0.1 MG) BY MOUTH TWICE DAILY 180 tablet 02/11/2024 Active Active Problems Problem Noted Date Diagnosed Date Anxiety 03/19/2023 Closed head injury without loss of consciousness 07/14/2020 PTSD (post-traumatic stress disorder) 06/16/2020 Acute gastroenteritis 05/10/2020 Mood disorder 04/02/2019 L4-L5 disc bulge 02/20/2019 Lumbar back pain with radicu lopathy affecting left lower extremity 02/20/2019 Nausea 08/19/2018 Anxiety with depression 07/14/2018 Vitamin B 12 deficiency 06/29/2016 Muscle pain 02/14/2016 Neck pain 02/14/2016 New daily persistent headache 02/14/2016 Tension-type headache 02/14/2016 Asthma 05/03/2015 Resolved Problems Problem Noted Date Diagnosed Date Resolved Date Knee pain 06/09/2018 03/19/2023 Family History Medical History Relation Name Comments Diabetes Father Diabetes Father's Sister Diabetes Paternal Grandfather Diabetes Paternal Grandmother Relation Name Status Comments Father Father's Sister Paternal Grandfather Paternal Grandmother Social History Tobacco Use Types Packs/Day Years Used Date Smoking Tobacco: Every Day Cigarettes 0.5 21.6 Started: 2003 Smokeless Tobacco: Never Tobacco Cessation:Ready to Q uit: Not Asked; Counseling Given: Not Answered Alcohol Use Standard Drinks/Week Comments Never 0 (1 standard drink = 0.6 oz pur e alcohol) Humiliation, Afraid, Rape, and Kick questionnair e Answer Date Recorded Within the last year, have y ou been afraid of your partner or ex-partner? No 07/03/2023 Within the last year, have y ou been humiliated or emotionally abused in other ways by your partner or ex-partner? No Within the last year, have y ou been kicked, hit, slapped, or otherwise physically hurt by your partner or ex-partner? No 07/03/2023 Within the last year, have y ou been raped or forced to have any kind of sexual activity by your partner or ex-partner? No 07/03/2023 Social Connection and Isolation Panel Answer Date Recorded In a typical week, how many times do you talk on the phone with family, friends, or neighbors? More than three times a week 07/03/2023 How often do you get togethe r with friends or relatives? More than three times a week 07/03/2023 How often do you attend [facility] or anabaptism services? More than 4 times per year 07/03/2023 Do you belong to any clubs o r organizations such as amish groups, unions, fraternal or athletic groups, or school groups? Yes 07/03/2023 How often do you attend meet ings of the clubs or organizations you belong to? More than 4 times per year 07/03/2023 Are you , , di vorced, , never , or living with a partner? 07/03/2023 AUDIT-C Answer Date Recorded Q1: How often do you have a drink containing alcohol? Never 07/03/2023 Q2: How many drinks containi ng alcohol do you have on a typical day when you are drinking? Patient does not drink Q3: How often do you have si x or more drinks on one occasion? Never 07/03/2023 PHQ-2 Answer Date Recorded Patient Health Questionnaire-2 Score 0 07/03/2023 [facility] - Occupational Stress Questionnaire Answer Date Recorded Do you feel stress - tense, restless, nervous, or anxious, or unable to sleep at night because your mind is troubled all the time - these days? To some extent 07/03/2023 Exercise Vital Sign Answer Date Recorde d On average, how many days pe r week do you engage in moderate to strenuous exercise (like a brisk walk)? 5 days 07/03/2023 On average, how many minutes do you engage in exercise at this level? 60 min 07/03/2023 Hunger Vital Sign Answer Date Recorded Within the past 12 months, y ou worried that your food would run out before you got the money to buy more. Never true 07/03/19 24 Within the past 12 months, t he food you bought just didn't last and you didn't have money to get more. Never true 07/03/2023 PRAPARE - Transportation Answer Date Re corded In the past 12 months, has l ack of transportation kept you from medical appointments or from getting medications? No 06/12 In the past 12 months, has l ack of transportation kept you from meetings, work, or from getting things needed for daily living? No 07/03/2023 Housing Stability Vital Sign Answer Hernando e Recorded In the last 12 months, was t here a time when you were not able to pay the mortgage or rent on time? No 07/03/2023 In the last 12 months, how many places have you lived? 1 07/03/2023 In the last 12 months, was t here a time when you did not have a steady place to sleep or slept in a half-way (including now)? No 07/03/2023 Utilities Answer Date Recorded In the past 12 months has th e electric, gas, oil, or water company threatened to shut off services in your home? No 07/03/2023 Comments No Sex and Gender Information Value Date Recorded Sex Assigned at Not on file Legal Sex Female 8:55 PM EDT Gender Identity Not on file Sexual Orientation Not on file Last Filed Vital Signs Vital Sign Reading Time Taken Comments Blood Pressure 148/88 07/03/2023 10:24 AM EDT Pulse 94 07/03/2023 10:24 AM EDT Temperature 37.1 C (98.7 F) 04/30/2023 2:41 PM EDT Respiratory Rate 18 07/03/2023 10:24 AM EDT Oxygen Saturation 99% 07/03/2023 10:24 AM EDT Inhaled Oxygen Concentration - - Weight 80.7 kg (178 lb) 07/03/2023 10:24 AM EDT Height 175.3 cm (5' 9 ) 07/03/2023 10:24 AM EDT Body Mass Index 26.29 07/03/2023 10:24 AM EDT Plan of Treatment Health Maintenance Due Date Last Done Comments [facility]-HIV Screening 1975 [facility]-Hepatitis C Screening 1975 [facility]-/Child/Adol SDOH Screenings 1975 [facility]- SDOH Screenings 09/30/1993 [facility]-Adult SDOH Screenings 09/30/1993 [facility]-DTaP,Tdap,and Td Vaccines (1 - Tdap) 09/30/1994 [facility]-Hepatitis B Vaccines (1 of 3 - 19+ 3-dose series) 09/30/1994 [facility]-Pneumococcal Vaccine: Pediatrics (0 to 5 Years) and At-Risk Patients (6 to 49 Years) (1 of 2 - PCV) 09/30/1994 [facility]-Pap Smear 09/30/1996 [facility]-Cervical Cancer Screening 09/30/2005 [facility]-HPV/Cotest 09/30/2005 CT Colonography 09/30/2020 Colonoscopy 09/30/2020 FIT-DNA 09/30/2020 FIT 09/30/2020 FOBT 09/30/2020 Sigmoidoscopy 09/30/2020 [facility]-Colorectal Cancer Screening 09/30/2020 [id number] Vaccine (1 - season) 2023 [facility]-Depression Screening 07/02/2024 07/03/2023 [facility]-Influenza Vaccine (#1) 2024 [facility]-Zoster Vaccines (1 of 2) 09/30/2025 [facility]-Obesity Intervention Completed 024, 06/18/2023, 04/30/2023, Additional history exists HPV Vaccines Aged Out No longer eligi ble based on patient's age to complete this topic [facility]-HIB Vaccines Aged Out No longer e ligible based on patient's age to complete this topic [facility]-Hepatitis A Vaccines Aged Out No longer eligible based on patient's age to complete this topic [facility]-IPV Vaccines Aged Out No longer e ligible based on patient's age to complete this topic [facility]-Rotavirus Vaccines Aged Out No lo nger eligible based on patient's age to complete this topic Insurance ANTH Care Teams Dentist Private Practice Relationship Specialty Start Date End Date Savannah Crabtree APRN [address] [place] [address] PCP - General 06/24/20
--- OUTSIDE RECORDS SUMMARY | 2024-10-05 12:55 | XMS_ITS | Encounter Summary ---
Author Organization Healthcare Address [address] [place] [address] Care Team Providers Care Driver'S License Examiner Name Role Phone Savannah Crabtree NIGHT CLERK Primary Care Provider [phone] Encounter Details Date Type Department Care Team (Late st Contact Info) Description 10/30/2021 Outside Procedure External Location [address] [place] [address] Savannah Crabtree, NIGHT CLERK [address] [place] [address] Social History Tobacco Use Types Packs/Day Years Used Date Smoking Tobacco: Every Day Smokeless Tobacco: Never PHQ-2 Answer Date Recorded PHQ-2 Score 2 10/31/2021 Comments Unknown Sex and Gender Information Value Date Recorded Sex Assigned at Not on file Legal Sex Female 8:55 PM EDT Gender Identity Not on file Sexual Orientation Not on file COVID-19 Exposure Response Date Recorded In the last 10 days, have yo u been in contact with someone who was confirmed or suspected to have Coronavirus/COVID-19? No / Unsure 10/20/2021 1:44 PM EDT documented as of this encounter Plan of Treatment Not on file documented as of this encounter Procedures Procedure Name Priority Date/Time Associated Diagnosis Comments MR HEAD WO IV CONTRAST 10/30/2021 10:33 AM EDT documented in this encounter Results * MR Head wo IV Contrast (10/30/2021 10:33 AM EDT) Anatomical Region Laterality Modality Head Magnetic Resonan ce 10/30/2021 10:3 3 AM EDT Narrative 10/30/2021 1:41 [place] [address] Name: ETHEL LAL Exam Date: 10/30/2021 : 1975 Age 46 Gender: F Physician: SAVANNAH CRABTREE Facility: [facility] Facility HSV: Outpatient Exam: MRI BRAIN W/O FINAL REPORT CLINICAL HISTORY: .Dizziness, forgetfulness w/ BUE tingling and BLE pain x 1 month. Pt. states she recently fell due to BLE weakness and dizziness. Hx of cyst in brain and family hx. of MS COMPARISON: 12/31/2016 FINDINGS: Multi planar MR imaging was obtained through the brain without contrast. The midline structures appear intact. There is no evidence of Chiari malformation. On T2 and flair axial images the brain parenchyma is homogeneous. On diffusion-weighted images there is no evidence of restricted diffusion. The visualized paranasal sinuses demonstrate normal signal voids. The seventh and eighth nerve root complexes are intact. IMPRESSION: Essentially unremarkable nonenhanced brain MRI. Reviewed, Interpreted and Dictated by Thuy Jenkins MD Transcribed by Iliana Valladares Authenticated and EASTERN Dictated By: THUY JENKINS Transcribed By: Transcribed On: 10/30/2021 1:30 PM Electronically signed by: THUY JENKINS 10/30/2021 Thank you for referring ETHEL LAL to [facility]. Legally authenticated by REINALDO Freedman 2021-10-30 13:30:10 Procedure Note Provider, Generic [place] - 10/30/2021 [place] [address] Name: ETHEL LAL Exam Date: 10/30/2021 : 1975 Age 46 Gender: F Physician: SAVANNAH CRABTREE Facility: [facility] Facility HSV: Outpatient Exam: MRI BRAIN W/O FINAL REPORT CLINICAL HISTORY: .Dizziness, forgetfulness w/ BUE tingling and BLE pain x 1 month. Pt. states she recently fell due to BLE weakness and dizziness. Hx of cyst in brain and family hx. of MS COMPARISON: 12/31/2016 FINDINGS: Multi planar MR imaging was obtained through the brain without contrast. The midline structures appear intact. There is no evidence of Chiari malformation. On T2 and flair axial images the brain parenchyma is homogeneous. On diffusion-weighted images there is no evidence of restricted diffusion. The visualized paranasal sinuses demonstrate normal signal voids. The seventh and eighth nerve root complexes are intact. IMPRESSION: Essentially unremarkable nonenhanced brain MRI. Reviewed, Interpreted and Dictated by Thuy Jenkins MD Transcribed by Iliana Valladares Authenticated and EASTERN Dictated By: THUY JENKINS Transcribed By: Transcribed On: 10/30/2021 1:30 PM Electronically signed by: THUY JENKINS 10/30/2021 Thank you for referring ETHEL LAL to [facility]. Legally authenticated by REINALDO Freedman 2021-10-30 13:30:10 us Savannah Crabtree APRN IMG MRI PROCEDURES Final Resu lt documented in this encounter Visit Diagnoses Not on filedocumented in this encounter Care Teams Driver'S License Examiner Relationship Specialty Start Date End Date Savannah Crabtree APRN [address] [place] [phone] PCP - General 06/24/20 documented as of this encounter
--- OUTSIDE RECORDS SUMMARY | 2024-10-05 12:55 | XMS_ITS | Encounter Summary ---
Author Organization Healthcare Address [address] [place] [address] Care Team Providers Care Power Hammer Operator Name Role Phone Savannah Crabtree APRN Primary Care Provider [phone] Encounter Details Date Type Department Care Team (Late st Contact Info) Description 06/23/2023 Outside Procedure External Location [address] [place] [id number] Provider, Jose [place] Social History Tobacco Use Types Packs/Day Years [...] place to sleep or slept in a [facility] (including now)? No 03/19/2023 Utilities Answer Date [...] Procedure Name Priority Date/Time Associated Diagnosis Comments XR CHEST 1 VIEW 06/23/2023 7:19 PM EDT documented in this encounter Results * XR Chest 1 View (06/23/2023 7:19 PM EDT) Anatomical Region Laterality Modality Chest Digital Radiogra phy 06/23/2023 7:19 PM EDT Narrative 06/24/2023 8:47 [place] [address] Name: ETHEL LAL Exam Date: 06/23/2023 : 1975 Age 47 years Gender: F Physician: CHASE AMANDA Facility: [facility] Facility HSV: Outpatient Exam: CHEST PORTABLE CHEST, 1 view HISTORY: Chest pain COMPARISON: None. FINDINGS: The lungs are clear. There is no evidence of effusion or other pleural disease. The mediastinum has a normal appearance. The cardiac silhouette is unremarkable. IMPRESSION: No acute cardiopulmonary process. Dictated By: Piotr Larios Transcribed By: Piotr Ace Transcribed On: 06/24/2023 8:36 AM Electronically signed by: Piotr Larios 06/24/2023 Thank you for referring ETHEL LAL to [facility]. Legally authenticated by PAUL DE LA CRUZ 2023-06-24 08:36:00 Procedure Note Provider, [facility] - 06/24/2023 [place] [address] Name: ETHEL LAL Exam Date: 06/23/2023 : 1975 Age 47 years Gender: F Physician: CHASE AMANDA Facility: [facility] Facility HSV: Outpatient Exam: CHEST PORTABLE CHEST, 1 view HISTORY: Chest pain COMPARISON: None. FINDINGS: The lungs are clear. There is no evidence of effusion or other pleural disease. The mediastinumhas a normal appearance. The cardiac silhouette is unremarkable. IMPRESSION: No acute cardiopulmonary process. Dictated By: Piotr Larios Transcribed By: Piotr Ace Transcribed On: 06/24/2023 8:36 AM Electronically signed by: Piotr Larios 06/24/2023 Thank you for referring ETHEL LAL to [facility]. Legally authenticated by PAUL DE LA CRUZ 2023-06-24 08:36:00 Generic [place] Provider IMG XR PROCEDURES Fi nal Result documented in this encounter Visit Diagnoses Not on filedocumented in this encounter Additional Health Concerns Assessment Noted Time A Body Mass Index follow-up plan has been documented for the patient 06/21/2023 11:27 AM EDT documented as of this encounter Care Teams Power Hammer Operator Relationship Specialty Start Date End Date Savannah Crabtree APRN [address] [place] [phone] PCP - General 06/24/20 documented as of this encounter
--- OUTSIDE RECORDS SUMMARY | 2024-10-05 12:55 | XMS_ITS | Encounter Summary ---
Author Organization Healthcare Address [address] [place] [address] Care Team Providers Care Computer Support Specialist Instructor Name Role Phone Savannah Crabtree STRUCTURAL TECHNICIAN Primary Care Provider [phone] Encounter Details Date Type Department Care Team (Late st Contact Info) Description 03/20/2021 Outside Procedure External Location [address] [place] [address] Savannah Crabtree, STRUCTURAL TECHNICIAN [address] [place] [address] Social History Tobacco Use Types [...] Exposure Response Date Recorded In the last month, have you been in contact with someone who was confirmed or suspected to have Coronavirus / COVID-19? No / Unsure 03/20/2021 9:33 AM EST documented as of this encounter Functional Status * Over the past 2 weeks, how often have you been bothered by any of the following problems? Question Answer Date of Assessment Author Little interest or pleasure in doing things Not at all 03/20/2021 9:37 AM EST Josefina Haley Feeling down, depressed, or hopeless Not at all 08/2021 9:37 AM EST Josefina Haley Patient Health Questionnaire-2 Score 0 08/2021 9:37 AM EST Josefina Haley * Calculated C-SSRS Risk Score (Lifetime/Recent) Answer Date of Assessment Author No Risk Indicated 03/20/2021 9:37 AM EST Tera, Mehul asity R * Question Answer Date of Assessment Author 1. Wish to be (Past 1 Month) No 022 9:37 AM EST Tera, Josefina R 2. Non-Specific Active Suici santiago Thoughts (Past 1 Month) No 03/20/2021 9:37 AM EST Tera, Josefina R 6. Suicidal Behavior (Lifetime) No 9:37 AM EST Holcomb, Josefina R documented as of this encounter Plan of Treatment Not on file documented as of this encounter Procedures Procedure Name Priority Date/Time Associated Diagnosis Comments XR THORACIC SPINE 3 VIEWS 03/20/2021 10:28 AM EST documented in this encounter Results * XR Thoracic Spine 3 Views (03/20/2021 10:28 AM EST) Anatomical Region Laterality Modality Spine, T-spine Radiographic Shi ging 03/20/2021 10:2 8 AM EST Narrative 03/21/2021 11:59 [place] [address] Name: ETHEL LAL Exam Date: 03/20/2021 : 1975 Age 45 Gender: F Physician: SAVANNAH CRABTREE Facility: [facility] Facility HSV: Outpatient Exam: THORACIC SPINE 3V THORACIC SPINE HISTORY: Back pain FINDINGS: 3 views of the thoracic spine demonstrate no evidence of fracture. There is normal alignment. IMPRESSION: No acute bony abnormality. Films reviewed , interpreted and dictated by Dr. Piotr Ace. Transcribed by Garett Gabriel PA-C. Dictated By: Piotr Larios Transcribed By: Piotr Ace Transcribed On: 03/21/2021 11:49 AM Electronically signed by: Piotr Larios 03/21/2021 Thank you for referring ETHEL LAL to [facility]. Legally authenticated by PAUL DE LA CRUZ 2021-03-21 11:49:00 Procedure Note Provider, Jose Copeland - 03/21/2021 [id number] [place] [address] Name: ETHEL LAL Exam Date: 03/20/2021 : 1975 Age 45 Gender: F Physician: SAVANNAH CRABTREE Facility: [facility] Facility HSV: Outpatient Exam: THORACIC SPINE 3V THORACIC SPINE HISTORY: Back pain FINDINGS: 3 views of the thoracic spine demonstrate no evidence offracture. There is normal alignment. IMPRESSION: No acute bony abnormality. Films reviewed , interpreted and dictated by Dr. Piotr Ace. Transcribed by Garett Gabriel PA-C. Dictated By: Piotr Larios Transcribed By: Piotr Ace Transcribed On: 03/21/2021 11:49 AM Electronically signed by: Piotr Larios 03/21/2021 Thank you for referring ETHEL LAL to [facility]. Legally authenticated by PAUL DE LA CRUZ 2021-03-21 11:49:00 us Savannah Crabtree APRN IMG XR PROCEDURES Final Resul t documented in this encounter Visit Diagnoses Not on filedocumented in this encounter Care Teams Computer Support Specialist Instructor Relationship Specialty Start Date End Date Savannah Crabtree APRN [address] [place] [phone] PCP - General 06/24/20 documented as of this encounter
--- OUTSIDE RECORDS SUMMARY | 2024-10-05 12:55 | XMS_ITS | Encounter Summary ---
Author Organization Healthcare Address [address] [place] [address] Care Team Providers Care Skid Strapper Name Role Phone Savannah Crabtree APRN Primary Care Provider [phone] Encounter Details Date Type Department Care Team (Late st Contact Info) Description 06/24/2023 Outside Procedure External Location [address] [place] [phone] Provider, Jose [place] Social History Tobacco Use Types Packs/Day Years [...] place to sleep or slept in a [place] [facility] (including now)? No 03/19/2023 Utilities Answer Date [...] Procedure Name Priority Date/Time Associated Diagnosis Comments ECHO, ADULT EXERCISE STRESS TEST 06/24/2023 8:17 AM EDT documented in this encounter Results * Echo, Adult Exercise Stress Test (06/24/2023 8:17 AM EDT) Anatomical Region Laterality Modality Ultrasound 06/24/2023 8:17 AM EDT Narrative 06/28/2023 5:45 PM EDT CARDIOLOGY REPORT - ORDERS-BASED ETHEL LAL [facility] 2 EXAM: STRESS TEST SCAN (TREADMILL) [id number] DATE OF EXAM: 06/24/2023 08:17:00 PROVIDER: JOSE SAPP MD The patient is a 47-year-old female with past medical history of anxiety, on propanolol, admitted to the hospital for observation for chest pain and mildly elevated cardiac biomarkers. At rest, she had a heart rate of 72 beats per minute. Resting EKG was normal sinus rhythm. The patient exercised according to the Danielito protocol for 7 minutes and 32 seconds achieving maximum work level of 9.3 METS, resting heart rate of 72 beats per minute with maximum heart rate of 148 beats per minute, that represents 85% of the maximum expected heart rate for her age. Her resting blood pressure of 153/90 mmHg, resting maximum blood pressure of 179/91 mmHg. At the peak of the exercise, the patient reached her maximum exercise capacity and exercise part of the stress test was completed and the patient was monitored during the exercise and recovery. The patient denied any chest pain. She had mild shortness of breath with exercise and she contributes that to her history of asthma. There were no ST or T-wave changes suggestive of ischemia. There was upsloping ST depression not suggestive of ischemia. There was no arrhythmia. Her blood pressure response to exercise was appropriate. At the end of the recovery period, her hemodynamics have returned back to her baseline. This was completed. In conclusion, normal regular exercise stress test. No exercise-induced ischemia demonstrated on the EKG. No chest pain. Normal functional capacity. DICTATED BY: JOSE SAPP MD MA/FLIP /[id number] Electronically Signed By: SENAIT GARCIA 2023-06-28 17:45:21 Procedure Note Provider, [facility] - 06/28/2023 CARDIOLOGY REPORT - ORDERS-BASED KRISTAL ETHEL [facility] 2 EXAM: STRESS TEST SCAN (TREADMILL) [id number] DATE OF EXAM: 06/24/2023 08:17:00 PROVIDER: JOSE SAPP MD The patient is a 47-year-old female with past medical history of anxiety,on propanolol, admitted to the hospital for observation for chest pain andmildly elevated cardiac biomarkers. At rest, she had a heart rate of 72 beatsper minute. Resting EKG was normal sinus rhythm. The patient exercisedaccording to the Danielito protocol for 7 minutes and 32 seconds achieving maximumwork level of 9.3 METS, resting heart rate of 72 beats per minute withmaximum heart rate of 148 beats per minute, that represents 85% of the maximum expected heart rate for her age. Her resting blood pressure of 153/90mmHg, resting maximum blood pressure of 179/91 mmHg. At the peak of theexercise, the patient reached her maximum exercise capacity and exercise part ofthe stress test was completed and the patient was monitored during theexercise and recovery. The patient denied any chest pain. She had mild shortnessof breath with exercise and she contributes that to her history of asthma.There were no ST or T-wave changes suggestive of ischemia. There was upslopingST depression not suggestive of ischemia. There was no arrhythmia. Herblood pressure response to exercise was appropriate. At the end of therecovery period, her hemodynamics have returned back to her baseline. This was completed. In conclusion, normal regular exercise stress test. No exercise-induced ischemia demonstrated on the EKG. No chest pain. Normal functionalcapacity. DICTATED BY: JOSE SAPP MD MA/FLIP /[id number] Electronically Signed By: SENAIT GARCIA 2023-06-28 17:45:21 Generic [place] Provider CV ECHO PROCEDURES F inal Result documented in this encounter Visit Diagnoses Not on filedocumented in this encounter Additional Health Concerns Assessment Noted Time A Body Mass Index follow-up plan has been documented for the patient 06/21/2023 11:27 AM EDT documented as of this encounter Care Teams Skid Strapper Relationship Specialty Start Date End Date Savannah Crabtree APRN [address] [place] [address] PCP - General 06/24/20 documented as of this encounter
--- OUTSIDE RECORDS SUMMARY | 2024-10-05 12:55 | XMS_ITS | Encounter Summary ---
Author Organization Healthcare Address [address] [place] [address] Care Team Providers Care Barley Steeper Name Role Phone Savannah Crabtree APRN Primary Care Provider [phone] Encounter Details Date Type Department Care Team (Late st Contact Info) Description 06/23/2023 Outside Procedure External Location [address] [place] [phone] Provider, Jose [place] Social History Tobacco Use Types Packs/Day Years [...] place to sleep or slept in a detention (including now)? No 03/19/2023 Utilities Answer Date [...] Name Priority Date/Time Associated Diagnosis Comments CT HEAD WO IV CONTRAST 06/23/2023 7:11 PM EDT documented in this encounter Results * CT Head wo IV Contrast (06/23/2023 7:11 PM EDT) Anatomical Region Laterality Modality Head Computed Tomogra phy 06/23/2023 7:11 PM EDT Narrative 06/23/2023 8:20 PM EDT [address] [place] [address] Name: ETHEL LAL Exam Date: 06/23/2023 : 1975 Age 47 years Gender: F Physician: CHASE AMANDA Facility: [facility] Facility HSV: Outpatient Exam: CT BRAIN W/O FINAL REPORT TECHNIQUE: Multiple axial CT images were performed from the foramen magnum to the vertex. This study was performed with techniques to keep radiation doses as low as reasonably achievable (ALARA). Individualized dose reduction techniques using automated exposure control or adjustment of mA and/or kV according to the patient's size were employed. CLINICAL HISTORY: Headache Sudden onset ALMEIDA COMPARISON: 06/01/2023 FINDINGS: No acute intracranial hemorrhage or large acute cortical infarct.The brain volume is normal for patient's age. Ventricles are normal in size and configuration.No midline shift.The basal cisterns are patent.No skull fracture.The visualized paranasal sinuses and mastoid air cells are clear. IMPRESSION: No acute intracranial hemorrhage or large acute cortical infarct. Authenticated and [facility] Dictated By: Tanner Holbrook Transcribed By: Transcribed On: 06/23/2023 8:08 PM Electronically signed by: Tanner Holbrook 06/23/2023 Thank you for referring ETHEL LAL to [facility]. Legally authenticated by WILFREDO Arellano 2023-06-23 20:08:46 Procedure Note Provider, Generic Penrose - 06/23/2023 [place] [address] Name: ETHEL LAL Exam Date: 06/23/2023 : 1975 Age 47 years Gender: F Physician: CHAES AMANDA Facility: [facility] Facility HSV: Outpatient Exam: CT BRAIN W/O FINAL REPORT TECHNIQUE: Multiple axial CT images were performed from the foramen magnum to the vertex. This study was performed with techniques to keep radiation doses as low as reasonably achievable (ALARA). Individualized dose reduction techniques using automated exposure control or adjustment of mA and/or kV according to the patient's size were employed. CLINICAL HISTORY: Headache Sudden onset ALMEIDA COMPARISON: 06/01/2023 FINDINGS: No acute intracranial hemorrhage or large acute cortical infarct.The brain volume is normal for patient's age. Ventricles are normal in size and configuration.No midline shift.The basal cisterns are patent.No skull fracture.The visualized paranasal sinuses and mastoid air cells are clear. IMPRESSION: No acute intracranial hemorrhage or large acute cortical infarct. Authenticated and [facility] Dictated By: Tanner Holbrook Transcribed By: Transcribed On: 06/23/2023 8:08 PM Electronically signed by: Tanner Holbrook 06/23/2023 Thank you for referring ETHEL LAL to [facility]. Legally authenticated by WILFREDO Arellano 2023-06-23 20:08:46 Generic [place] Provider IMG CT PROCEDURES Fi nal Result documented in this encounter Visit Diagnoses Not on filedocumented in this encounter Additional Health Concerns Assessment Noted Time A Body Mass Index follow-up plan has been documented for the patient 06/21/2023 11:27 AM EDT documented as of this encounter Care Teams Barley Steeper Relationship Specialty Start Date End Date Savannah Crabtree, DISPATCHER MOTOR VEHICLE [address] [place] [address] PCP - General 06/24/20 documented as of this encounter
== END 2024-10-04 23:59 | disposition home or self-care (01) ==
LOC: LAB.DROPOF 10-05 12:52
PROVIDERS: PCP Student in an Organized Health Care Education/Training Program; Visit Provider Student in an Organized Health Care Education/Training Program
DX: N39.0 Urinary tract infection, site not specified (principal)
CPT/HCPCS: 87086